=== PATIENT | female | born 1970 | race Caucasian/White ===

== ENCOUNTER 2017-02-18 11:00 | Emergency (ER) | payer MEDICAID, MEDICARE ==
[~2017-02-18] VITALS: Ht 165.1 cm; Wt 72.6 kg
[2017-02-18 11:00] VITALS: BP 127/92
[2017-02-18] MEDS ORDERED: ROBA500T PO (11:36)
[2017-02-18] MEDS ORDERED: INDO25CA PO (11:36)
== END 2017-02-18 12:00 | disposition home or self-care (01) ==
LOC: M ED 11:49
DX: M50.20 Other cervical disc displacement, unspecified cervical region (principal); E78.5 Hyperlipidemia, unspecified

== ENCOUNTER → 2017-03-07 | Outpatient (CLI) | payer MEDICARE, MEDICAID ==
[~2017-03-07] MED LIST: INDO25CA PO; ROBA500T PO
--- NOTE | 2017-03-07 11:51 | REP ---
Clinical: Pain. Technique: Internal rotation, external rotation, and Y view. Findings: Subtle spurring and cortical irregularity at the acromioclavicular joint is appreciated. The glenohumeral joint appears relatively intact. Subacromial space is normal. No periarticular calcifications are identified. No evidence for acute fracture dislocation. Impression: Mild arthritic degenerative changes primarily involving the acromioclavicular joint. Signed by Adrien Bee MD 03/07/2017 11:42 A
--- NOTE | 2017-03-07 12:15 | REP ---
Clinical: Neck pain . Technique: AP, lateral, flexion/extension, bilateral oblique, and open-mouth views. Comparison: 09/19/2016 Findings: Alignment and lordosis is maintained. There is no evidence for acute fracture / compression injury or subluxation. Advanced degenerative disc osteophyte complex appreciated at the C5-6 level includes osteophytosis, endplate sclerosis and disc space narrowing. No further degenerative changes noted. Oblique views demonstrate patent neural foramen. Open mouth view demonstrates normal C1-C2 articulation and odontoid process. Impression: Advanced focal degenerative changes at the C5-6 level. Signed by Adrien Bee MD 03/07/2017 12:07 P
== END ==
LOC: M ADAMS 11:07
PROVIDERS: ATTEND Physician Assistant Medical
DX: M50.90 Cervical disc disorder, unspecified, unspecified cervical region (principal); M25.511 Pain in right shoulder
CPT/HCPCS: 72050; 73030; 90732; G0009

== ENCOUNTER → 2017-03-29 | Outpatient (REF) | payer MEDICARE, MEDICAID ==
[2017-03-29 18:59] LABS: ALBUMIN 3.5 GM/DL (3.2-5.2); ALBUMIN/GLOBULIN RATIO 1.17 (1.00-1.93); ALKALINE PHOSPHATASE 52 U/L (45-117); ALT/SGPT 17 U/L (12-78); ANION GAP 8 MEQ/L (8-16); AST/SGOT 13 U/L (15-37); BILIRUBIN,TOTAL 0.6 MG/DL (0.2-1.0); BLOOD UREA NITROGEN 12 MG/DL (7-18); CARBON DIOXIDE LEVEL 26 MEQ/L (21-32); CHLORIDE LEVEL 106 MEQ/L (98-107); CHOLESTEROL LEVEL 258 MG/DL (<200); FREE T4 1.06 NG/DL (0.76-1.46); GLOMERULAR FILTRATION RATE > 60.0 (>58); GLUCOSE, FASTING 87 MG/DL (70-105); POTASSIUM SERUM 4.8 MEQ/L (3.5-5.1); SODIUM LEVEL 140 MEQ/L (136-145); TOTAL PROTEIN 6.5 GM/DL (6.4-8.2); TRIGLYCERIDES LEVEL 167 MG/DL (<150)
[2017-03-29 19:07] LABS: BASO # 0.1 K/mm3 (0.0-0.2); BASO % 0.8 % (0.0-1.0); EOS # 0.1 K/mm3 (0.0-0.50); EOS % 1.5 % (0.0-3.0); LARGE UNSTAINED CELL # 0.2 K/mm3 (0.0-0.4); LARGE UNSTAINED CELL % 1.7 % (0.0-4.0); LYMPH # 2.4 K/mm3 (1.5-4.5); LYMPH % 24.6 % (24.0-44.0); MEAN CORPUSCULAR HEMOGLOBIN 28.3 pg (27.0-33.0); MEAN CORPUSCULAR HGB CONC 32.3 g/dl (32.0-36.5); MEAN CORPUSCULAR VOLUME 87.8 fl (80.0-96.0); MONO # 0.4 K/mm3 (0.0-0.8); MONO % 4.6 % (0.0-5.0); NEUTROPHILS # 6.4 K/mm3 (1.8-7.7); NEUTROPHILS % 66.9 % (36.0-66.0); PLATELET COUNT, AUTOMATED 271 k/mm3 (150-450); WHITE BLOOD COUNT 9.6 K/mm3 (4.0-10.0)
== END ==
LOC: M SFHCADAM 09:52
PROVIDERS: ATTEND Physician Assistant Medical
DX: Z00.00 Encounter for general adult medical examination without abnormal findings (principal); F17.210 Nicotine dependence, cigarettes, uncomplicated; E66.01 Morbid (severe) obesity due to excess calories; Z12.39 Encounter for other screening for malignant neoplasm of breast; M54.2 Cervicalgia; M25.511 Pain in right shoulder; Z23 Encounter for immunization

== ENCOUNTER → 2017-04-21 | Outpatient (CLI) | payer MEDICAID, MEDICARE ==
--- NOTE | 2017-04-23 08:51 | REP ---
MR CERVICAL SPINE WITHOUT CONTRAST: HISTORY: Right neck and shoulder pain. A disc bulge with associated osteophyte formation is present at the C5-6 level. There is mild effacement of the thecal sac without spinal cord compression. Bilateral uncinate process hypertrophy is present. This produces mild narrowing at the C5 neural foramina. There is no other disc bulge or herniation. The remaining neural foramina are patent. The spinal cord is normal in signal intensity. The C5-6 intervertebral disc is decreased in height consistent with disc degeneration. Increased signal intensity on T2-weighted images is present in the endplates of the C5 and C6 vertebral bodies. This represents degenerative change. IMPRESSION: There is cervical spondylosis at the C5-6 level without spinal cord compression. Signed by Chuy Westfall MD 04/23/2017 09:45 A
--- NOTE | 2017-04-23 12:07 | REP ---
MRI RIGHT SHOULDER WITHOUT CONTRAST: HISTORY: Acute pain in the right shoulder. Right neck pain. Limited range of motion. Comparison radiographs are from March 07, 2017. FINDINGS: There is some marrow edema on either side of a hypertrophied osteoarthritic acromioclavicular joint. Glenohumeral joint is normally aligned. There is diffuse increased signal intensity along the distal supraspinatus tendon. On oblique coronal T2-weighted scans, there is heterogeneous fluid signal intensity in this portion of the tendon consistent with partial thickness but fairly extensive supraspinatus tendon tears. No retraction is seen. Infraspinatus, subscapularis, and biceps tendons are intact. No labral disruption is appreciated. No juxtaarticular cyst or mass is observed. IMPRESSION: 1. Extensive tendinosis and partial-thickness tear supraspinatus tendon. 2. AC joint osteoarthritis with bony hypertrophy and some marrow edema. Signed by Vinicius Tomlinson MD 04/23/2017 05:02 P
== END ==
LOC: M RAD 09:29
PROVIDERS: ATTEND Physician Assistant Medical
DX: M47.892 Other spondylosis, cervical region (principal); M75.81 Other shoulder lesions, right shoulder; M19.011 Primary osteoarthritis, right shoulder; M54.2 Cervicalgia; M25.511 Pain in right shoulder

== ENCOUNTER → 2018-06-30 | Outpatient (REF) | payer MEDICARE | LOC: M SFHCWAGY 12:09 | DX: Z12.4 Encounter for screening for malignant neoplasm of cervix (principal); R87.5 Abnormal microbiological findings in specimens from female genital organs; Z12.12 Encounter for screening for malignant neoplasm of rectum | CPT/HCPCS: G0123 ==

== ENCOUNTER → 2018-07-02 | Outpatient (CLI) | payer MEDICARE | LOC: M WHC 14:29 | DX: R10.2 Pelvic and perineal pain (principal); Z12.31 Encounter for screening mammogram for malignant neoplasm of breast; D25.9 Leiomyoma of uterus, unspecified; N83.02 Follicular cyst of left ovary; N88.8 Other specified noninflammatory disorders of cervix uteri; N63.24 Unspecified lump in the left breast, lower inner quadrant | CPT/HCPCS: 76830 ==

== ENCOUNTER → 2018-07-08 | Outpatient (CLI) | payer MEDICARE | LOC: M RAD 10:52 | DX: N63.10 Unspecified lump in the right breast, unspecified quadrant (principal) | CPT/HCPCS: 77065 ==

== ENCOUNTER → 2018-12-01 | Outpatient (CLI) | payer MEDICARE ==
[~2018-12-01] MED LIST changes: +GABA-843 PO; +GASTROGRAFIN SOLUTION 30ML (Q9963) As Ordered ONE; +ISOVUE-370 76% 100ML VIAL (Q9967) As Ordered ONE; +MELO15TA28
--- NOTE | 2018-12-01 11:40 | REP ---
CT of the abdomen pelvis without and with IV contrast and with bowel contrast: There are no comparisons. The visualized lung estevez are unremarkable. The hepatic parenchyma, gallbladder, pancreas and spleen are unremarkable. There is a 7 mm right adrenal hypodense nodule measuring 8 HU, compatible with a small benign angioma. The right adrenal is otherwise unremarkable. The left adrenal is unremarkable. The kidneys are unremarkable. 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 There is reconstitution of the distal abdominal aorta and the lumbar collaterals. The inferior mesenteric artery, iliac arteries and femoral arteries are patent. The right renal artery is patent and There is a atheromatous plaque at the origin of the left renal artery. The celiac artery and superior mesenteric artery are patent without stenosis. There is no periaortic or mesenteric adenopathy. There is no ascites. The mesentery is unremarkable. There is no bowel distension or obstruction. There is no bowel wall thickening. Pelvis: The appendix and terminal ileum are unremarkable. There is no ascites or adenopathy. The uterus, adnexa are unremarkable except for a bilateral fallopian tubal ligation clips. There is a tiny bubble of air anteriorly in the bladder. This could be from catheterization. 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 The distal abdominal aorta is reconstituted by lumbar collaterals as described. Bilateral tubal ligation clips. No bowel distension or obstruction. No bowel wall thickening. No diverticula. No ascites or adenopathy. Terminal ileum and appendix are unremarkable. 7 mm hypodense right adrenal nodule compatible with benign adenoma. Electronically Signed by Leonardo Madsen MD 12/01/2018 11:31 A
== END ==
LOC: M RAD 08:21
PROVIDERS: ATTEND Surgery
DX: R10.13 Epigastric pain (principal)
CPT/HCPCS: 74178; Q9963; Q9967

== ENCOUNTER → 2018-12-16 | Outpatient (CLI) | payer MEDICARE ==
[~2018-12-16] MED LIST changes: +E-Z-GAS II EFFERVESCENT PACKET (SODIUM BICARB./CITRIC ACID/SIMETHICONE) As Ordered ONE; +E-Z-HD 98% w/w 340GM SUSP BTL As Ordered ONE; +E-Z-PAQUE 96% w/w SUSP 176GM BTL As Ordered ONE; -GASTROGRAFIN SOLUTION 30ML (Q9963) As Ordered ONE; -ISOVUE-370 76% 100ML VIAL (Q9967) As Ordered ONE
--- NOTE | 2018-12-17 08:13 | REP ---
UPPER GI AIR CONTRAST AND SMALL BOWEL FOLLOW THROUGH The procedure was performed under the direct supervision of Dr. Tomlinson. The images were reviewed with Dr. Tomlinson The filter worker film shows no organomegaly or pathological masses. The intestinal gas pattern is non-specific. Liquid barium and gas producing crystals were given in the erect position as well as liquid barium in the prone oblique position in order to perform a double contrast upper GI examination. Additionally liquid barium was given at the end of the examination in order to perform a small bowel follow through. The oral and pharyngeal stages of deglutition are unremarkable. Esophageal transport is prompt and efficient and there is no esophagitis, stricture, mucosal ring or hiatal hernia. Gastroesophageal reflux is not demonstrated on this examination. The stomach majano are normally outlined . The rugal folds are smooth and regular. There is no gastritis neoplasm or ulcer disease. In the post bulbar duodenum there are thickened folds which likely represents duodenitis. There is no ralph ulcer identified. The visualized portion of the proximal small bowel appears normal in course and caliber. The barium column was followed through the small bowel to the level of the terminal ileum. Small bowel transit time is approximately 15 minutes . During fluoroscopy gentle palpation shows all loops are freely movable and pliable. There are no fixed or angulated loops. The small bowel mucosal pattern is normal in course and caliber. There is no transition to suggest a partial small-bowel obstruction. Spot filming of the terminal ileum shows it to be unremarkable. Impression: There are thickened folds in the post bulbar duodenum. This likely represents duodenitis. There is no ralph ulcer identified. The remainder of the exam is unremarkable. 2.2 minutes of fluoro time was utilized for this procedure. Reviewed by REJI Maradiaga 12/16/2018 04:13 P Electronically Signed by Vinicius Tomlinson MD 12/17/2018 08:04 A
== END ==
LOC: M RAD 10:56
PROVIDERS: ATTEND Surgery
DX: R10.9 Unspecified abdominal pain (principal)

== ENCOUNTER → 2018-12-30 | Outpatient (REF) | payer MEDICARE ==
[~2018-12-30] MED LIST changes: +ATOR80TA59 PO; +CLOP75TA2 PO; -E-Z-GAS II EFFERVESCENT PACKET (SODIUM BICARB./CITRIC ACID/SIMETHICONE) As Ordered ONE; -E-Z-HD 98% w/w 340GM SUSP BTL As Ordered ONE; -E-Z-PAQUE 96% w/w SUSP 176GM BTL As Ordered ONE; +VITA50005 PO; +[UNRECOGNIZED DRUG - CODE] EX
[2018-12-30 13:13] LABS: ALT/SGPT 23 U/L (12-78); BILIRUBIN,TOTAL 0.5 MG/DL (0.2-1.0); BLOOD UREA NITROGEN 10 MG/DL (7-18); CALCIUM LEVEL 9.6 MG/DL (8.5-10.1); CARBON DIOXIDE LEVEL 29 MEQ/L (21-32); CHLORIDE LEVEL 105 MEQ/L (98-107); CHOLESTEROL LEVEL 320 MG/DL (<200); CHOLESTEROL RISK RATIO 5.925 (<5); CREATININE FOR GFR 0.71 MG/DL (0.55-1.30); GLOMERULAR FILTRATION RATE > 60.0 (>58); GLUCOSE, FASTING 94 MG/DL (70-100); HDL CHOLESTEROL 54 MG/DL (>40); LDL CHOLESTEROL 226 MG/DL (<100); NON-HDL-C 266 MG/DL; POTASSIUM SERUM 4.9 MEQ/L (3.5-5.1); SODIUM LEVEL 142 MEQ/L (136-145); TOTAL 25(OH) VITAMIN D 13.1 NG/ML (30.0-100.0); TOTAL PROTEIN 7.4 GM/DL (6.4-8.2); TRIGLYCERIDES LEVEL 199 MG/DL (<150)
[2018-12-30 13:48] LABS: HEMOGLOBIN A1c 5.5 %
== END ==
LOC: M SFHCADAM 08:09
PROVIDERS: ATTEND Physician Assistant Medical
DX: F17.210 Nicotine dependence, cigarettes, uncomplicated (principal); E66.01 Morbid (severe) obesity due to excess calories; E55.9 Vitamin D deficiency, unspecified; I71.4 Abdominal aortic aneurysm, without rupture; E78.2 Mixed hyperlipidemia

== ENCOUNTER 2019-01-15 06:13 | Inpatient (IN) | payer MEDICARE ==
[~2019-01-15] VITALS: Ht 167.6 cm; Wt 84.0 kg
[2019-01-15] VITALS (9 sets, daily range): BP systolic 83–126; BP diastolic 52–68
[~2019-01-15 06:13] MED LIST changes: +LIDOCAINE 1% MDV 20ML VIAL SQ PRN; +LR 1,000 ML IV ONE
[2019-01-15 06:37] LABS: HEMATOCRIT 46.1 % (36.0-47.0); HEMOGLOBIN 14.9 g/dl (12.0-15.5); MEAN CORPUSCULAR HEMOGLOBIN 28.1 pg (27.0-33.0); MEAN CORPUSCULAR HGB CONC 32.3 g/dl (32.0-36.5); MEAN CORPUSCULAR VOLUME 86.8 fl (80.0-96.0); PLATELET COUNT, AUTOMATED 310 10^3/uL (150-450); RED BLOOD COUNT 5.31 10^6/uL (4.00-5.40)
[2019-01-15] MEDS ORDERED: HEPARIN SOD (PORCINE) 5000 UNITS/ML VIAL As Ordered ONE ×4 (06:51→10:48)
[2019-01-15] MEDS ORDERED: PHENYLEPHRINE INJ 10MG/ML VIAL (J2370) As Ordered ONE (07:10)
[2019-01-15] MEDS ORDERED: LIDOCAINE 2% INJ 100 MG/5 ML SDV (FOR ANES.) As Ordered ONE (07:16)
[2019-01-15] MEDS ORDERED: ONDANSETRON 4MG/2ML VIAL (J2405) As Ordered ONE (07:16)
[2019-01-15] MEDS ORDERED: PROPOFOL 200 MG/20 ML VIAL As Ordered ONE (07:16)
[2019-01-15] MEDS ORDERED: ROCURONIUM BROMIDE 50 MG/5 ML VIAL As Ordered ONE ×2 (07:16→08:44)
[2019-01-15] MEDS ORDERED: dexameTHASONE 4 MG/ML 1ML VIAL (J1100) As Ordered ONE (07:16)
[2019-01-15] MEDS ORDERED: fentaNYL 250 MCG/5 ML INJECTION (J3010) As Ordered ONE ×2 (07:20→08:28)
[2019-01-15] MEDS ORDERED: MIDAZOLAM INJ 2 MG/2 ML VIAL (J2250) As Ordered ONE (07:20)
--- NOTE | 2019-01-15 07:34 | HPEPDOC ---
General Date of Admission Jan 15, 2019 at 06:13 Attending Physician: Benigno Samaniego MD Chief Complaint The patient is a 48-year-old female admitted with a reason for visit of Aortic Occlusion. Source: Patient Exam Limitations: No limitations Timing/Duration: Constant, Getting worse Severity: Severe History of Present Illness Patient is a 48-year-old female with bilateral lower extremity leg pain numbness tingling who was found to have aortic occlusion on a CT scan of the abdomen and pelvis.Patient denies rest pain, TIAs, amaurosis fugax, paralysis or paresis of the extremity, nausea, fevers, chills, vomiting, chest pain, or shortness of breath. Home Medications Scheduled (Sodium Sulfacetamide/Sulf 10-5 %) 1 Emu Emu, Unknown Dose EX DAILY, (Reported) left lower leg Atorvastatin Calcium (Atorvastatin Calcium) 80 Mg Tab, 80 MG PO QHS, (Reported) Clopidogrel Bisulfate (Clopidogrel) 75 Mg Tab, 75 MG PO DAILY, (Reported) Ergocalciferol (Vitamin D) 50,000 Unit Cap, 50,000 UNIT PO QWEEK, (Reported) friday Gabapentin (Gabapentin) 300 Mg Cap, 300 MG PO TID, (Reported) Allergies Coded Allergies: No Known Allergies (Unverified , 01/13/19) Past Medical History Medical History Tobacco use Hyperlipidemia Alcohol abuse Cervical degenerative disc disease Heart degenerative disc disease History of cocaine use Lumbar disc 5 fracture Vitamin D deficiency Surgical History Tubal ligation Oral surgery Family History Mother is with a history of cancer which was metastatic and of unknown etiology. Hypertension Father has unknown history and is unknown to the patient Paternal grandmother had a history of diabetes hypertension and coronary artery disease. Social History * Smoker: current smoker Alcohol: Denies Drugs: denies Recent Travel/Sick Contacts: Denies: Recent travel, Recent sick contacts Psychosocial History: No pertinent psych hx Review of Systems Constitutional: Denies: Chills, Fever, Malaise, Night Sweats, Weakness, Fatig ue, Weight Loss, Lethargy Eyes: Denies: Pain, Vision change, Conjunctivae inflammation, Eyelid inflammation, Redness ENT: Denies: Head Aches, Ear Pain, Dysphagia, Sinus Congestion, Post Nasal Drip, Sore Throat, Epistaxis Skin: Denies: Rash, Lesions, Jaundice, Bruising, Itching, Dry, Breakdown, Nail Changes Pulmonary: Reports: Other Symptoms; Denies: Dyspnea, Cough, Pleuritic Chest Pain Cardiovascular: Denies: Chest Pain, Palpitations, Orthopnea, Paroxysmal Noc. Dyspnea, Edema, Lt Headedness Gastrointestinal: Denies: Nausea, Vomiting, Abdominal Pain, Diarrhea, Constipation, Melena, Hematochezia Genitourinary: Denies: Dysuria, Frequency, Incontinence, Hematuria, Retention Hematologic: Denies: Bruising, Bleeding Excessively, Petecchia, Purpura, Enlarged Lymph Nodes Endocrine: Denies: Polydipsia, Polyphagia, Polyuria, Heat Intolerance, Cold Intolerance Musculoskeletal: Denies: Neck Pain, Back Pain, Shoulder Pain, Arm Pain, Hand Pain, Leg Pain, Foot Pain, Joint Pain, Muscle Pain, Spasms Neurological: Denies: Weakness, Numbness, Incoordination, Change in speech, Confusion, Seizures Psych: Reports: Mood Normal; Denies: Anxiety, Depression, Memory Issues, Thoughts of Self Harm, Anger, Thoughts of Harming Other Physical Examination General Exam: Positive: Alert, Cooperative, No Acute Distress Eye Exam: Positive: PERRLA, Conjunctiva & lids normal ENT Exam: Positive: Atraumatic, Pharynx Normal, Tongue Midline, Nares Patent, Ext Auditory Canal Nml, Pinna Normal Neck Exam: Positive: Supple, +2 carotid pulse wo bruit Chest Exam: Positive: Clear to auscultation, Normal air movement Heart Exam: Positive: Rate Normal Telemetry: Positive: No significant arrhythmia Abdomen Exam: Positive: Normal bowel sounds, Soft Extremity Exam: Negative: Clubbing, Cyanosis, Edema, Normal pulses Skin Exam: Positive: Nl turgor and temperature Neuro Exam: Positive: Normal Gait, Normal Speech, Strength at 5/5 X4 ext, Normal Tone, Sensation Intact, Cranial Nerves 3-12 NL Psych Exam: Positive: Mental status NL, Mood NL, Anxiety, Memory Intact, Oriented x 3 Vital Signs Vital Signs Date Time Temp Pulse Resp B/P (MAP) Pulse Ox O2 Delivery O2 Flow Rate FiO2 01/15/19 06:36 97.1 89 20 102/72 (82) 97 Laboratory Data Labs 24H Laboratory Tests 2 01/15/19 06:25: Nucleated Red Blood Cells % (auto) 0.0 CBC/BMP Laboratory Tests 01/15/19 06:25 Red Blood Count 5.31, Mean Corpuscular Volume 86.8, Mean Corpuscular Hemoglobin 28.1, Mean Corpuscular Hemoglobin Concent 32.3, Red Cell Distribution Width 14.4 Assessment/Plan Assessment 48-year-old female with aortic occlusion and debilitating bilateral lower extremity claudication. Plan Patient will undergo an aortic endarterectomy with possible aortobiiliac or aortobifemoral bypass grafting. Benigno Samaniego MD Jan 15, 2019 07:33
[2019-01-15] MEDS ORDERED: THROMBIN SOLN 20,000 UNITS KIT As Ordered ONE (07:54)
[2019-01-15 08:43] LABS: AMPHETAMINES LEVEL URINE NEGATIVE (NEGATIVE); BARBITURATES URINE NEGATIVE (NEGATIVE); BENZODIAZEPINES URINE NEGATIVE (NEGATIVE); CANNABINOIDS URINE POSITIVE (NEGATIVE); COCAINE METABOLITE URINE NEGATIVE (NEGATIVE); METHADONE URINE NEGATIVE (NEGATIVE); OPIATES URINE NEGATIVE (NEGATIVE); PHENCYCLIDINE URINE NEGATIVE (NEGATIVE)
[2019-01-15] MEDS ORDERED: METOPROLOL 5 MG/5 ML VIAL As Ordered ONE (08:48)
[2019-01-15] MEDS ORDERED: PHENYLephrine HCL 500 MCG/5 ML (100MCG/ML) SYRINGE (J2370) As Ordered ONE (10:14)
[2019-01-15] MEDS ORDERED: ePHEDrine SULFATE 25 MG/5 ML(5MG/ML) SYRINGE As Ordered ONE (10:15)
[2019-01-15] MEDS ORDERED: PROTAMINE SULF INJ 50 MG/5 ML VIAL (J2720) As Ordered ONE (10:48)
[2019-01-15] MEDS ORDERED: SUGAMMADEX SODIUM 500 MG/5 ML VIAL (BRIDION) As Ordered ONE (11:20)
[2019-01-15] MEDS ORDERED: HYDROmorphone HCL 2 MG/ML 1ML VIAL (J1170) As Ordered ONE (11:22)
[2019-01-15] MEDS ORDERED: KETOROLAC 60 MG/2 ML VIAL (J1885) As Ordered ONE (11:23)
[2019-01-15] MEDS ORDERED: MORPHINE 4 MG/ML 1ML VIAL/SYRINGE (J2270) IV PRN ×2 (12:00)
[2019-01-15] MEDS ORDERED: METOCLOPRAMIDE INJ 10MG/2ML VIAL (J2765) IV PRN (12:00)
[2019-01-15] MEDS ORDERED: LR 1,000 ML IV SCH (12:00)
[2019-01-15] MEDS ORDERED: MOM 30ML SUSPENSION UDC PO PRN (12:00)
[2019-01-15] MEDS ORDERED: BISACODYL 10 MG SUPP PR PRN (12:00)
[2019-01-15] MEDS ORDERED: MEPERIDINE INJ 25 MG/ML VIAL (J2175) IV PRN (12:00)
[2019-01-15] MEDS ORDERED: PERCOCET 5MG/325MG TAB PO PRN (12:00)
[2019-01-15] MEDS ORDERED: ONDANSETRON 4MG/2ML VIAL (J2405) IV PRN (12:00)
[2019-01-15] MEDS ORDERED: LEVALBUTEROL 1.25 MG/0.5 ML CONCENTRATE NEB As Ordered ONE (12:25)
[2019-01-15] MEDS: PHENYLephrine HCL 500 MCG/5 ML (100MCG/ML) SYRINGE (J2370) IV SCH ×5 (12:26→13:05)
[2019-01-15] MEDS ORDERED: LEVALBUTEROL 1.25 MG/0.5 ML CONCENTRATE NEB INH ONE (12:45)
[2019-01-15] MEDS: fentaNYL 100 MCG/2 ML INJECTION (J3010) IV PRN ×3 (12:50→13:20)
[2019-01-15 13:49] LABS: HEMOGLOBIN 14.3 g/dl (12.0-15.5)
[2019-01-15] MEDS ORDERED: HEPARIN SOD (PORCINE) 5000 UNITS/ML VIAL SC SCH (14:00)
[2019-01-15] MEDS: ONDANSETRON 4MG/2ML VIAL (J2405) IV PRN ×2 (14:20→20:14)
[2019-01-15] MEDS: D5W/LR 1,000 ML IV SCH ×2 (14:28→21:04)
[2019-01-15] MEDS ORDERED: INFLUENZA QUADRIVALENT PF VACCINE 0.5ML SYRINGE (90686) IM PRN (16:45)
[2019-01-15] MEDS: ceFAZolin SOD 1 GM in D5W MINI-BAG PLUS 50 ML IV SCH (16:55)
[2019-01-15] MEDS: NORCO, ANEXSIA 5/325MG TABLET (HYDROcodone/ACETAMINOPHEN) PO PRN (20:14)
[2019-01-15 20:45] LABS: HEMATOCRIT 39.6 % (36.0-47.0); HEMOGLOBIN 12.4 g/dl (12.0-15.5)
[2019-01-15] MEDS: SENOKOT S TAB PO SCH (21:04)
[2019-01-15] MEDS: PANTOPRAZOLE 40MG INJ (PROTONIX) (C9113) IV SCH (21:04)
[2019-01-15] MEDS: HEPARIN SOD (PORCINE) 5000 UNITS/ML VIAL SC SCH (21:05)
[2019-01-15] MEDS: DOCUSATE SODIUM 100 MG CAP PO SCH (21:05)
[2019-01-15] MEDS ORDERED: NS 500 ML IV ONE (22:15)
[2019-01-16] VITALS (24 sets, daily range): BP systolic 85–152; BP diastolic 44–75
[2019-01-16] MEDS: NORCO, ANEXSIA 5/325MG TABLET (HYDROcodone/ACETAMINOPHEN) PO PRN ×6 (00:06→22:19)
[2019-01-16] MEDS: ceFAZolin SOD 1 GM in D5W MINI-BAG PLUS 50 ML IV SCH (00:07)
[2019-01-16 01:58] LABS: HEMATOCRIT 33.1 % (36.0-47.0); HEMOGLOBIN 10.6 g/dl (12.0-15.5)
[2019-01-16] MEDS: NS 1,000 ML IV SCH ×2 (02:34→05:42)
[2019-01-16] MEDS: HEPARIN SOD (PORCINE) 5000 UNITS/ML VIAL SC SCH ×3 (05:31→21:07)
[2019-01-16] MEDS: D5W/LR 1,000 ML IV SCH ×3 (05:32→21:07)
[2019-01-16 08:15] LABS: HEMATOCRIT 24.9 % (36.0-47.0); HEMOGLOBIN 7.8 g/dl (12.0-15.5); MEAN CORPUSCULAR HEMOGLOBIN 27.7 pg (27.0-33.0); MEAN CORPUSCULAR HGB CONC 31.3 g/dl (32.0-36.5); MEAN CORPUSCULAR VOLUME 88.3 fl (80.0-96.0); PLATELET COUNT, AUTOMATED 219 10^3/uL (150-450); RED BLOOD COUNT 2.82 10^6/uL (4.00-5.40); WHITE BLOOD COUNT 10.5 10^3/uL (4.0-10.0)
[2019-01-16] MEDS: DOCUSATE SODIUM 100 MG CAP PO SCH ×2 (08:18→21:06)
[2019-01-16] MEDS: PANTOPRAZOLE 40MG INJ (PROTONIX) (C9113) IV SCH ×2 (08:19→21:07)
[2019-01-16] MEDS: SENOKOT S TAB PO SCH ×2 (08:19→21:06)
[2019-01-16 09:24] LABS: BLOOD UREA NITROGEN 16 MG/DL (7-18); CALCIUM LEVEL 5.4 MG/DL (8.5-10.1); CARBON DIOXIDE LEVEL 18 MEQ/L (21-32); CHLORIDE LEVEL 117 MEQ/L (98-107); CREATININE FOR GFR 0.74 MG/DL (0.55-1.30); GLOMERULAR FILTRATION RATE > 60.0 (>58); GLUCOSE, FASTING 119 MG/DL (70-100); POTASSIUM SERUM 3.7 MEQ/L (3.5-5.1); SODIUM LEVEL 144 MEQ/L (136-145)
[2019-01-16 14:26] LABS: HEMATOCRIT 24.9 % (36.0-47.0); HEMOGLOBIN 7.9 g/dl (12.0-15.5)
[2019-01-16] MEDS: ACETAMINOPHEN TAB 650MG DOSE (2X325MG) PO PRN (15:41)
[2019-01-16 19:35] LABS: HEMATOCRIT 25.1 % (36.0-47.0); HEMOGLOBIN 7.7 g/dl (12.0-15.5)
[2019-01-16] MEDS: GABAPENTIN 300 MG CAP PO SCH (23:49)
[2019-01-17] VITALS (21 sets, daily range): BP systolic 109–138; BP diastolic 53–70
[2019-01-17 02:14] LABS: HEMATOCRIT 24.8 % (36.0-47.0); HEMOGLOBIN 7.7 g/dl (12.0-15.5)
[2019-01-17] MEDS: NORCO, ANEXSIA 5/325MG TABLET (HYDROcodone/ACETAMINOPHEN) PO PRN ×5 (02:22→22:58)
[2019-01-17] MEDS: HEPARIN SOD (PORCINE) 5000 UNITS/ML VIAL SC SCH ×3 (05:17→21:27)
[2019-01-17] MEDS: D5W/LR 1,000 ML IV SCH (05:18)
[2019-01-17 07:51] LABS: HEMATOCRIT 22.6 % (36.0-47.0); MEAN CORPUSCULAR HEMOGLOBIN 27.5 pg (27.0-33.0); MEAN CORPUSCULAR VOLUME 88.6 fl (80.0-96.0); PLATELET COUNT, AUTOMATED 215 10^3/uL (150-450); RED BLOOD COUNT 2.55 10^6/uL (4.00-5.40); WHITE BLOOD COUNT 9.6 10^3/uL (4.0-10.0)
[2019-01-17 07:56] LABS: HEMATOCRIT 22.5 % (36.0-47.0)
[2019-01-17] MEDS: GABAPENTIN 300 MG CAP PO SCH ×3 (08:01→21:27)
[2019-01-17] MEDS: SENOKOT S TAB PO SCH ×2 (08:01→21:27)
[2019-01-17] MEDS: DOCUSATE SODIUM 100 MG CAP PO SCH ×2 (08:01→21:27)
[2019-01-17] MEDS: PANTOPRAZOLE 40MG INJ (PROTONIX) (C9113) IV SCH (08:01)
[2019-01-17 08:12] LABS: BLOOD UREA NITROGEN 8 MG/DL (7-18); CALCIUM LEVEL 7.3 MG/DL (8.5-10.1); CARBON DIOXIDE LEVEL 27 MEQ/L (21-32); CHLORIDE LEVEL 109 MEQ/L (98-107); CREATININE FOR GFR 0.75 MG/DL (0.55-1.30); GLOMERULAR FILTRATION RATE > 60.0 (>58); GLUCOSE, FASTING 118 MG/DL (70-100); POTASSIUM SERUM 3.9 MEQ/L (3.5-5.1); SODIUM LEVEL 141 MEQ/L (136-145)
[2019-01-17] MEDS: ACETAMINOPHEN TAB 650MG DOSE (2X325MG) PO PRN ×2 (10:25→16:24)
--- NOTE | 2019-01-17 12:45 | IPNPDOC ---
Subjective General Date/Time Seen The patient was seen on 01/17/19 at 12:33. Subject Chief Complaint/History The patient is a 48-year-old female admitted with a reason for visit of Aortic Occlusion. Current Medications Current Medications Current Medications Acetaminophen (Tylenol Tab) 650 mg Q4HP PRN PO MILD PAIN or TEMP > 101 Last administered on 01/17/19at 10:25; Start 01/15/19 at 12:00 Acetaminophen/ Hydrocodone Bitart ([place], Anexsia 5/325) 1 tab Q4HP PRN PO MODERATE PAIN (PS 5-7) Last administered on 01/17/19at 12:23; Start 01/15/19 at 12:00 Bisacodyl (Dulcolax Suppository) 10 mg DAILYPRN PRN [place] CONSTIPATION; Start 01/15/19 at 12:00 Cefazolin Sodium 1 gm/Dextrose 50 ml @ 100 mls/hr Q8H IV Last administered on 01/16/19at 00:07; Start 01/15/19 at 16:00; Stop 01/16/19 at 00:29; Status DC Dextrose/Lactated Ringer's 1,000 ml @ 125 mls/hr Q8H IV Last administered on 01/17/19at 05:18; Start 01/15/19 at 11:55; Stop 01/17/19 at 08:23; Status DC Docusate Sodium (Colace) 100 mg BID PO Last administered on 01/17/19at 08:01; Start 01/15/19 at 21:00 Fentanyl Citrate (Sublimaze) 25 mcg Q5MP PRN IV MODERATE PAIN (PS 4-7) Last administered on 01/15/19at 13:20; Start 01/15/19 at 12:00; Stop 01/15/19 at 13:00; Status DC Gabapentin (Neurontin) 300 mg TID PO Last administered on 01/17/19at 08:01; Start 01/16/19 at 21:00 Heparin Sodium (Porcine) (Heparin) 5,000 units Q8H SC ; Start 01/15/19 at 14:00; Status Cancel Heparin Sodium (Porcine) (Heparin) 5,000 units Q8H SC Last administered on 01/17/19at 05:17; Start 01/15/19 at 22:00 Influenza Virus Vaccine (Fluzone Quadrivalent Pf Vaccine) 0.5 ml ONCE PRN IM WHEN DCd FROM ICU; Start 01/15/19 at 16:45 Lactated Ringer's 1,000 ml @ 100 mls/hr Q10H IV ; Start 01/15/19 at 12:00; Stop 01/15/19 at 13:00; Status DC Lidocaine HCl (LIDOCAINE 1% MDV 20ml) 0.1 ml ONCE PRN SQ DISCOMFORT BEFORE IV START; Start 01/15/19 at 06:00; Stop 01/15/19 at 11:56; Status DC Magnesium Hydroxide (Milk Of Magnesia) 30 ml DAILYPRN PRN PO CONSTIPATION; Start 01/15/19 at 12:00 Meperidine HCl (Demerol) 12.5 mg Q5MP PRN IV SHIVERING; Start 01/15/19 at 12:00; Stop 01/15/19 at 13:00; Status DC Metoclopramide HCl (REGLAN INJection) 10 mg Q6HP PRN IV NAUSEA OR VOMITING; Start 01/15/19 at 12:00; Stop 01/15/19 at 13:00; Status DC Morphine Sulfate (Morphine Sulfate Inj) 2 mg Q2HP PRN IV SEVERE PAIN (PS 8-10); Start 01/15/19 at 12:00 Morphine Sulfate (Morphine Sulfate Inj) 4 mg Q2HP PRN IV SEVERE PAIN (PS 8-10) Last administered on 01/15/19at 15:56; Start 01/15/19 at 12:00 Ondansetron HCl (ZOFRAN INJection) 4 mg Q4HP PRN IV NAUSEA OR VOMITING; Start 01/15/19 at 12:00; Stop 01/15/19 at 13:00; Status DC Ondansetron HCl (ZOFRAN INJection) 4 mg Q6HP PRN IV NAUSEA OR VOMITING Last administered on 01/15/19at 20:14; Start 01/15/19 at 12:00 Oxycodone/ Acetaminophen (Percocet 5mg/ 325mg Tablet) 1 tab ASDIRECTED PRN PO MILD/MODERATE PAIN (PS 1-7); Start 01/15/19 at 12:00; Stop 01/15/19 at 13:00; Status DC Pantoprazole Sodium (Protonix) 40 mg BID IV Last administered on 01/17/19at 08:01; Start 01/15/19 at 21:00 Phenylephrine HCl (Phenylephrine Syringe (100mcg/ ml)) 100 mcg Q5M IV Last administered on 01/15/19at 12:47; Start 01/15/19 at 12:45; Stop 01/15/19 at 13:06; Status DC Senna/Docusate Sodium (Senokot S) 1 tab BID PO Last administered on 01/17/19at 08:01; Start 01/15/19 at 21:00 Sodium Chloride 1,000 ml @ 250 mls/hr Q4H IV Last administered on 01/16/19at 02:34; Start 01/16/19 at 02:30; Stop 01/16/19 at 06:30; Status DC Allergies Coded Allergies: No Known Allergies (Unverified , 01/13/19) VITAL SIGNS VITAL SIGNS Vital Signs Date Time Temp Pulse Resp B/P (MAP) Pulse Ox O2 Delivery O2 Flow Rate FiO2 01/17/19 12:23 102 21 93 01/17/19 12:00 98.4 101 21 125/61 (87) 96 01/17/19 11:00 106 132/64 (91) 95 01/17/19 10:00 103 118/63 (84) 96 01/17/19 09:00 109 125/58 (83) 99 01/17/19 08:33 101 17 96 01/17/19 08:03 98.5 116 20 131/61 97 01/17/19 08:00 97.8 110 19 131/61 (88) 97 01/17/19 07:00 112 123/58 (83) 96 01/17/19 05:00 100 120/57 (82) 96 01/17/19 04:00 97.4 101 18 109/55 (76) 95 01/17/19 03:00 101 114/59 (83) 96 01/17/19 02:22 18 01/17/19 02:00 116 124/60 (87) 98 01/17/19 01:00 111 113/56 (80) 97 01/17/19 00:00 98.0 109 22 109/53 (76) 96 01/17/19 00:00 109 109/53 (76) 96 01/16/19 23:00 114 100/47 (68) 96 01/16/19 22:19 18 01/16/19 22:00 106 116/58 (83) 96 01/16/19 21:00 105 105/51 (74) 97 01/16/19 20:00 97.6 106 20 104/51 (74) 98 01/16/19 19:00 104 105/52 (75) 95 01/16/19 18:28 104 15 101/53 97 01/16/19 18:00 101 101/53 (74) 96 134/52 01/16/19 17:00 104 112/55 (79) 96 149/60 01/16/19 16:00 98.1 109 17 114/53 (77) 95 93/57 01/16/19 15:00 108 109/53 (77) 95 85/71 01/16/19 14:00 97 109/53 (77) 95 109/44 01/16/19 13:30 111/75 01/16/19 13:00 109 111/75 (86) 96 123/54 01/16/19 13:00 100 15 122/60 96 Intake & Output 01/17/19 06:00 Intake Total 3780 ml Output Total 1550 ml Balance 2230 ml Laboratory Tests 01/16/19 14:12: Hemoglobin 7.9L, Hematocrit 24.9L 01/16/19 19:30: Hemoglobin 7.7L, Hematocrit 25.1L 01/17/19 01:59: Hemoglobin 7.7L, Hematocrit 24.8L 01/17/19 07:30: Hemoglobin 7.0L, Hematocrit 22.6L, White Blood Count 9.6, Red Blood Count 2.55L, Mean Corpuscular Volume 88.6, Mean Corpuscular Hemoglobin 27.5, Mean Corpuscular Hemoglobin Concent 31.0L, Red Cell Distribution Width 14.6H, Platelet Count 215, Nucleated Red Blood Cells % (auto) 0.0, Blood Urea Nitrogen 8, Creatinine 0.75, Sodium Level 141, Potassium Level 3.9, Chloride Level 109H, Carbon Dioxide Level 27, Calcium Level 7.3#L, Anion Gap 5L, Glomerular Filtration Rate > 60.0, Fasting Glucose 118H Current Medications Medications (Trade) Dose Ordered Sig/Colin Route PRN Reason Start Time Stop Time Status Last Admin Dose Admin Acetaminophen (Tylenol Tab) 650 mg Q4HP PRN PO MILD PAIN or TEMP > 101 01/15/19 12:00 01/17/19 10:25 Acetaminophen/ Hydrocodone Bitart ([place], Anexsia 5/325) 1 tab Q4HP PRN PO MODERATE PAIN (PS 5-7) 01/15/19 12:00 01/17/19 12:23 Docusate Sodium (Colace) 100 mg BID PO 01/15/19 21:00 01/17/19 08:01 Gabapentin (Neurontin) 300 mg TID PO 01/16/19 21:00 01/17/19 08:01 Heparin Sodium (Porcine) (Heparin) 5,000 units Q8H SC 01/15/19 22:00 01/17/19 05:17 Morphine Sulfate (Morphine Sulfate Inj) 4 mg Q2HP PRN IV SEVERE PAIN (PS 8-10) 01/15/19 12:00 01/15/19 15:56 Ondansetron HCl (ZOFRAN INJection) 4 mg Q6HP PRN IV NAUSEA OR VOMITING 01/15/19 12:00 01/15/19 20:14 Pantoprazole Sodium (Protonix) 40 mg BID IV 01/15/19 21:00 01/17/19 08:01 Senna/Docusate Sodium (Senokot S) 1 tab BID PO 01/15/19 21:00 01/17/19 08:01 Laboratory Tests 01/15/19 13:30 01/15/19 20:19 01/16/19 01:50 01/16/19 08:00 Red Blood Count 2.82 L, Mean Corpuscular Volume 88.3, Mean Corpuscular Hemoglobin 27.7, Mean Corpuscular Hemoglobin Concent 31.3 L, Red Cell Distribution Width 14.6 H, Calcium Level 5.4 *L 01/16/19 14:12 01/16/19 19:30 01/17/19 01:59 01/17/19 07:30 Red Blood Count 2.55 L, Mean Corpuscular Volume 88.6, Mean Corpuscular Hemoglobin 27.5, Mean Corpuscular Hemoglobin Concent 31.0 L, Red Cell Distribution Width 14.6 H, Calcium Level 7.3 #L Objective Physical Examination General Exam: Positive: Alert, Cooperative, No Acute Distress Eye Exam: Positive: PERRLA, Conjunctiva & lids normal ENT Exam: Positive: Atraumatic, Pharynx Normal, Tongue Midline, Nares Patent, Ext Auditory Canal Nml, Pinna Normal Neck Exam: Positive: Supple, +2 carotid pulse wo bruit Chest Exam: Positive: Clear to auscultation, Normal air movement Heart Exam: Positive: Rate Normal Telemetry: Positive: No significant arrhythmia Abdomen Exam: Positive: Normal bowel sounds, Soft Extremity Exam: Negative: Clubbing, Cyanosis, Edema, Normal pulses Skin Exam: Positive: Nl turgor and temperature Neuro Exam: Positive: Normal Gait, Normal Speech, Strength at 5/5 X4 ext, Loni l Tone, Sensation Intact, Cranial Nerves 3-12 NL Psych Exam: Positive: Mental status NL, Mood NL, Anxiety, Memory Intact, Oriented x 3 Assessment/Plan Assessment Aortic endarterectomy Plan Transfuse 2 units PRBC OOB D/C haynes advance diet Benigno Samaniego MD Jan 17, 2019 12:45
--- NOTE | 2019-01-17 12:50 | IPNPDOC ---
Subjective General Date/Time Seen The patient was seen on 01/16/19 at 6:30 am. Subject Chief Complaint/History The patient is a 48-year-old female admitted with a reason for visit of Aortic Occlusion. Current Medications Current Medications Current Medications Acetaminophen (Tylenol Tab) 650 mg Q4HP PRN PO MILD PAIN or TEMP > 101 Last administered on 01/17/19at 10:25; Start 01/15/19 at 12:00 Acetaminophen/ Hydrocodone Bitart ([place], Anexsia 5/325) 1 tab Q4HP PRN PO MODERATE PAIN (PS 5-7) Last administered on 01/17/19at 12:23; Start 01/15/19 at 12:00 Bisacodyl (Dulcolax Suppository) 10 mg DAILYPRN PRN DC CONSTIPATION; Start 01/15/19 at 12:00 Cefazolin Sodium 1 gm/Dextrose 50 ml @ 100 mls/hr Q8H IV Last administered on 01/16/19at 00:07; Start 01/15/19 at 16:00; Stop 01/16/19 at 00:29; Status DC Dextrose/Lactated Ringer's 1,000 ml @ 125 mls/hr Q8H IV Last administered on 01/17/19at 05:18; Start 01/15/19 at 11:55; Stop 01/17/19 at 08:23; Status DC Docusate Sodium (Colace) 100 mg BID PO Last administered on 01/17/19at 08:01; Start 01/15/19 at 21:00 Fentanyl Citrate (Sublimaze) 25 mcg Q5MP PRN IV MODERATE PAIN (PS 4-7) Last administered on 01/15/19at 13:20; Start 01/15/19 at 12:00; Stop 01/15/19 at 13:00; Status DC Gabapentin (Neurontin) 300 mg TID PO Last administered on 01/17/19at 08:01; Start 01/16/19 at 21:00 Heparin Sodium (Porcine) (Heparin) 5,000 units Q8H SC ; Start 01/15/19 at 14:00; Status Cancel Heparin Sodium (Porcine) (Heparin) 5,000 units Q8H SC Last administered on 01/17/19at 05:17; Start 01/15/19 at 22:00 Influenza Virus Vaccine (Fluzone Quadrivalent Pf Vaccine) 0.5 ml ONCE PRN IM WHEN DCd FROM ICU; Start 01/15/19 at 16:45 Lactated Ringer's 1,000 ml @ 100 mls/hr Q10H IV ; Start 01/15/19 at 12:00; Stop 01/15/19 at 13:00; Status DC Lidocaine HCl (LIDOCAINE 1% MDV 20ml) 0.1 ml ONCE PRN SQ DISCOMFORT BEFORE IV START; Start 01/15/19 at 06:00; Stop 01/15/19 at 11:56; Status DC Magnesium Hydroxide (Milk Of Magnesia) 30 ml DAILYPRN PRN PO CONSTIPATION; Start 01/15/19 at 12:00 Meperidine HCl (Demerol) 12.5 mg Q5MP PRN IV SHIVERING; Start 01/15/19 at 12:00; Stop 01/15/19 at 13:00; Status DC Metoclopramide HCl (REGLAN INJection) 10 mg Q6HP PRN IV NAUSEA OR VOMITING; Start 01/15/19 at 12:00; Stop 01/15/19 at 13:00; Status DC Morphine Sulfate (Morphine Sulfate Inj) 2 mg Q2HP PRN IV SEVERE PAIN (PS 8-10); Start 01/15/19 at 12:00 Morphine Sulfate (Morphine Sulfate Inj) 4 mg Q2HP PRN IV SEVERE PAIN (PS 8-10) Last administered on 01/15/19at 15:56; Start 01/15/19 at 12:00 Ondansetron HCl (ZOFRAN INJection) 4 mg Q4HP PRN IV NAUSEA OR VOMITING; Start 01/15/19 at 12:00; Stop 01/15/19 at 13:00; Status DC Ondansetron HCl (ZOFRAN INJection) 4 mg Q6HP PRN IV NAUSEA OR VOMITING Last administered on 01/15/19at 20:14; Start 01/15/19 at 12:00 Oxycodone/ Acetaminophen (Percocet 5mg/ 325mg Tablet) 1 tab ASDIRECTED PRN PO MILD/MODERATE PAIN (PS 1-7); Start 01/15/19 at 12:00; Stop 01/15/19 at 13:00; Status DC Pantoprazole Sodium (Protonix) 40 mg BID IV Last administered on 01/17/19at 08:01; Start 01/15/19 at 21:00 Phenylephrine HCl (Phenylephrine Syringe (100mcg/ ml)) 100 mcg Q5M IV Last administered on 01/15/19at 12:47; Start 01/15/19 at 12:45; Stop 01/15/19 at 13:06; Status DC Senna/Docusate Sodium (Senokot S) 1 tab BID PO Last administered on 01/17/19at 08:01; Start 01/15/19 at 21:00 Sodium Chloride 1,000 ml @ 250 mls/hr Q4H IV Last administered on 01/16/19at 02:34; Start 01/16/19 at 02:30; Stop 01/16/19 at 06:30; Status DC Allergies Coded Allergies: No Known Allergies (Unverified , 01/13/19) VITAL SIGNS VITAL SIGNS Laboratory Tests 01/15/19 13:30 01/15/19 20:19 01/16/19 01:50 Objective Physical Examination General Exam: Positive: Alert, Cooperative, No Acute Distress Eye Exam: Positive: PERRLA, Conjunctiva & lids normal ENT Exam: Positive: Atraumatic, Pharynx Normal, Tongue Midline, Nares Patent, Ext Auditory Canal Nml, Pinna Normal Neck Exam: Positive: Supple, +2 carotid pulse wo bruit Chest Exam: Positive: Clear to auscultation, Normal air movement Heart Exam: Positive: Rate Normal Telemetry: Positive: No significant arrhythmia Abdomen Exam: Positive: Normal bowel sounds, Soft Extremity Exam: Negative: Clubbing, Cyanosis, Edema, Normal pulses Skin Exam: Positive: Nl turgor and temperature Neuro Exam: Positive: Normal Gait, Normal Speech, Strength at 5/5 X4 ext, Normal Tone, Sensation Intact, Cranial Nerves 3-12 NL Psych Exam: Positive: Mental status NL, Mood NL, Anxiety, Memory Intact, Oriented x 3 Assessment/Plan Assessment s/p Aortic endartrectomy Plan Monitor H/H no need for transfusion at this time OOB continue haynes cont NPO-no flatus Benigno Samaniego MD Jan 17, 2019 12:50
[2019-01-17 14:58] LABS: HEMOGLOBIN 9.2 g/dl (12.0-15.5)
[2019-01-17 20:11] LABS: HEMATOCRIT 28.4 % (36.0-47.0); HEMOGLOBIN 9.1 g/dl (12.0-15.5)
[2019-01-17] MEDS: PANTOPRAZOLE 40MG TAB (PROTONIX) PO SCH (21:27)
[2019-01-18] VITALS (12 sets, daily range): BP systolic 112–150; BP diastolic 60–84
[2019-01-18 02:01] LABS: HEMATOCRIT 27.2 % (36.0-47.0); HEMOGLOBIN 8.7 g/dl (12.0-15.5)
[2019-01-18] MEDS: NORCO, ANEXSIA 5/325MG TABLET (HYDROcodone/ACETAMINOPHEN) PO PRN ×3 (04:33→14:51)
[2019-01-18] MEDS: HEPARIN SOD (PORCINE) 5000 UNITS/ML VIAL SC SCH ×2 (06:04→13:03)
[2019-01-18 08:11] LABS: HEMATOCRIT 29.2 % (36.0-47.0); HEMOGLOBIN 9.2 g/dl (12.0-15.5); MEAN CORPUSCULAR HEMOGLOBIN 27.6 pg (27.0-33.0); MEAN CORPUSCULAR HGB CONC 31.5 g/dl (32.0-36.5); MEAN CORPUSCULAR VOLUME 87.7 fl (80.0-96.0); PLATELET COUNT, AUTOMATED 234 10^3/uL (150-450); RED BLOOD COUNT 3.33 10^6/uL (4.00-5.40); WHITE BLOOD COUNT 8.6 10^3/uL (4.0-10.0)
[2019-01-18] MEDS: SENOKOT S TAB PO SCH (09:26)
[2019-01-18] MEDS: GABAPENTIN 300 MG CAP PO SCH ×2 (09:26→14:50)
[2019-01-18] MEDS: PANTOPRAZOLE 40MG TAB (PROTONIX) PO SCH (09:26)
[2019-01-18] MEDS: DOCUSATE SODIUM 100 MG CAP PO SCH (09:26)
[2019-01-18 10:29] LABS: BLOOD UREA NITROGEN 7 MG/DL (7-18); CALCIUM LEVEL 7.7 MG/DL (8.5-10.1); CARBON DIOXIDE LEVEL 27 MEQ/L (21-32); CHLORIDE LEVEL 107 MEQ/L (98-107); CREATININE FOR GFR 0.63 MG/DL (0.55-1.30); GLOMERULAR FILTRATION RATE > 60.0 (>58); GLUCOSE, FASTING 83 MG/DL (70-100); POTASSIUM SERUM 3.4 MEQ/L (3.5-5.1); SODIUM LEVEL 140 MEQ/L (136-145)
[2019-01-18] MEDS: POTASSIUM CHLORIDE 10 MEQ SR TABLET PO SCH ×2 (13:03→14:51)
[2019-01-18 14:26] LABS: HEMATOCRIT 29.7 % (36.0-47.0); HEMOGLOBIN 9.5 g/dl (12.0-15.5)
[2019-01-18] MEDS ORDERED: HYDR-3715 PO (15:08)
[2019-01-18] MEDS ORDERED: BISA10SU PR (15:08)
[2019-01-18] MEDS ORDERED: Docusate Sod/Senna PO (15:08)
[2019-01-18] MEDS ORDERED: COLA100C5 PO (15:08)
--- NOTE | 2019-01-18 15:11 | DS.PDOC ---
Discharge Summary General Date of Admission Jan 15, 2019 at 06:13 Date of Discharge 01/18/2019 Attending Physician: Benigno Samaniego MD Discharge Summary PROCEDURES PERFORMED DURING STAY: Aortic endarterectomy with patch angioplasty with Xenosure biologic patch. ADMITTING DIAGNOSES: 1. Aortic occlusion with bilateral lower extremity claudication. DISCHARGE DIAGNOSES: 1. Aortic occlusion with bilateral lower extremity claudication. COMPLICATIONS/CHIEF COMPLAINT: Aortic Occlusion. HISTORY OF PRESENT ILLNESS: Patient is a 48-year-old female who has claudication in the lower extremities who was admitted after being found to have aortic occlusion for and aortic endarterectomy for reestablishing flow into the bilateral lower extremity. HOSPITAL COURSE: Patient was admitted and underwent an aortic endarterectomy with patch angioplasty with Xenosure biologic patch. Patient had acute postoperative anemia and required transfusion on postop day 1. Patient had return of bowel function was ambulating well with good pain control was discharged home on postoperative day 3. DISCHARGE MEDICATIONS: Please see below. ALLERGIES: Please see below. PHYSICAL EXAMINATION ON DISCHARGE: VITAL SIGNS: Please see below. GENERAL: No apparent distress HEENT: Normal NECK: With no carotid bruits CARDIOVASCULAR EXAMINATION: Regular rate and rhythm RESPIRATORY EXAMINATION: Clear to auscultation bilaterally ABDOMINAL EXAMINATION: Soft nontender nondistended. The incision is clean dry and intact with claudia in place. EXTREMITIES: Warm and well-perfused SKIN: Warm well perfused NEUROLOGICAL EXAMINATION: Awake alert oriented 3 PSYCHIATRIC EXAMINATION: Normal LABORATORY DATA: Please see below. IMAGING: None PROGNOSIS: Good ACTIVITY: As tolerated. DIET: Low-fat low-cholesterol DISCHARGE PLAN: Discharge home DISPOSITION: . DISCHARGE INSTRUCTIONS: 1. Stop smoking, follow-up in the office in one week. ITEMS TO FOLLOWUP ON ON OUTPATIENT: 1. Smoking cessation. DISCHARGE CONDITION: Stable. TIME SPENT ON DISCHARGE: Greater than 45 minutes. Vital Signs/I&Os Vital Signs Date Time Temp Pulse Resp B/P (MAP) Pulse Ox O2 Delivery O2 Flow Rate FiO2 01/18/19 14:51 18 01/18/19 12:01 98.3 92 143/67 (96) 95 01/18/19 03:00 0.5 I&O- Last 24 Hours up to 6 AM 01/18/19 05:59 Intake Total 2985 ml Output Total 1950 ml Balance 1035 ml Laboratory Data Labs 24H Laboratory Tests 2 01/18/19 07:50: Nucleated Red Blood Cells % (auto) 0.0, Anion Gap 6L, Glomerular Filtration Rate > 60.0, Blood Urea Nitrogen 7, Creatinine 0.63, Sodium Level 140, Potassium Level 3.4L, Chloride Level 107, Carbon Dioxide Level 27, Calcium Level 7.7L CBC/BMP Laboratory Tests 01/17/19 20:06 01/18/19 01:55 01/18/19 07:50 Red Blood Count 3.33 L, Mean Corpuscular Volume 87.7, Mean Corpuscular Hemoglobin 27.6, Mean Corpuscular Hemoglobin Concent 31.5 L, Red Cell Distribution Width 14.8 H, Calcium Level 7.7 L 01/18/19 13:59 Discharge Medications Scheduled (Sodium Sulfacetamide/Sulf 10-5 %) 1 Emu Emu, Unknown Dose EX DAILY, (Reported) left lower leg Atorvastatin Calcium (Atorvastatin Calcium) 80 Mg Tab, 80 MG PO QHS, (Reported) Clopidogrel Bisulfate (Clopidogrel) 75 Mg Tab, 75 MG PO DAILY, (Reported) Docusate Sodium (Colace) 100 Mg Cap, 100 MG PO BID Ergocalciferol (Vitamin D) 50,000 Unit Cap, 50,000 UNIT PO QWEEK, (Reported) friday Gabapentin (Gabapentin) 300 Mg Cap, 300 MG PO TID, (Reported) [Docusate Sod/Senna] 1 TAB TAB, 1 TAB PO BID Scheduled PRN Acetaminophen/Hydrocodone ([place], Anexsia 5/325) 1 Tab Tab, 1 TAB PO Q4HP PRN for MODERATE PAIN (PS 5-7) Bisacodyl (Bisac-Evac) 10 Mg Supp, 10 MG VT DAILYPRN PRN for CONSTIPATION Allergies Coded Allergies: No Known Allergies (Unverified , 01/13/19) Benigno Samaniego MD Jan 18, 2019 15:11
--- NOTE | 2019-01-18 15:12 | ROOPDOC ---
Benigno Samaniego MD Jan 18, 2019 15:12
--- NOTE | 2019-01-20 14:35 | RO ---
DATE OF PROCEDURE: 01/15/2019 PREOPERATIVE DIAGNOSES: Bilateral lower extremity claudication. Aortic occlusion. POSTOPERATIVE DIAGNOSES: Bilateral lower extremity claudication. Aortic occlusion. PROCEDURE: Aortic endarterectomy with patch angioplasty with XenoSure biologic patch. ATTENDING SURGEON: Dr. Sunny Samaniego WORKPLACE RELATIONS ADVISER: None. ANESTHESIA: General endotracheal. INDICATION: The patient is a 48-year-old female with aortic occlusion and bilateral lower extremity claudication. The patient will undergo aortic endarterectomy with possible aortoiliac and/or aortobifemoral bypass. Risks, benefits and alternative treatment options were discussed with the patient. ESTIMATED BLOOD LOSS: 2000 mL. IV FLUIDS: 1152 mL of Cell Saver, 3700 mL of crystalloid. HEPARIN: 7000 units followed by an additional 3000 units, protamine 50 mg. SPECIMEN: Aortic plaque. URINE OUTPUT: 100 mL via [place]. COMPLICATIONS: None. DRAINS: None. IMPLANTS: XenoSure biologic patch used to perform patch angioplasty of the aorta. PROCEDURE: The patient was taken to the operating room, placed supine on the operating room table and then prepped and draped in a standard surgical fashion. The incision was carried down in the midline through the skin and subcutaneous tissues using a scalpel. The Bovie was used to open the fascia in the midline and entered the abdominal cavity. Retractors were placed. The retroperitoneum was opened exposing the aorta. The aorta was clamped above the plaque just below the renal arteries and distal to the CRISTIAN. The aorta was opened and the plaque was removed and the arteriotomy was closed with a later XenoSure biologic patch and #6-0 Prolene suture. Flow was reestablished with good flow noted in the iliac arteries distally. The retroperitoneum was closed using #2-0 Vicryl suture. The bowel and omentum was replaced into normal location. Seprafilm was placed along the course of the incision. Incision was closed using looped PDS suture in a running continuous fashion. The skin was closed with claudia. All instrument, sponge and needle counts were correct at the end the case. There were no complications. Dr. Samaniego was present for and directed the entire case. The patient was transferred to the recovery room awake, alert, extubated and in stable condition.
== END 2019-01-18 15:53 | disposition home or self-care (01) | DRG 269 ==
LOC: M OR 06:13 → M ICU 14:11
PROVIDERS: ADMIT Surgery Vascular Surgery; ATTEND Surgery Vascular Surgery
PROC: 04U Lower Arteries, Supplement (ICD-10-PCS; 2019-01-15)
PROC: 04C00ZZ Extirpation of Matter from Abdominal Aorta, Open Approach (ICD-10-PCS; principal; 2019-01-15 07:30)
DX: I70.213 Atherosclerosis of native arteries of extremities with intermittent claudication, bilateral legs (principal); I70.0 Atherosclerosis of aorta; F17.200 Nicotine dependence, unspecified, uncomplicated; Z79.899 Other long term (current) drug therapy; E78.5 Hyperlipidemia, unspecified; E55.9 Vitamin D deficiency, unspecified

== ENCOUNTER → 2019-01-21 | Outpatient (REF) | payer MEDICARE ==
[~2019-01-21] MED LIST changes: +BISA10SU PR; +COLA100C5 PO; +Docusate Sod/Senna PO; +HYDR-3715 PO; -LIDOCAINE 1% MDV 20ML VIAL SQ PRN; -LR 1,000 ML IV ONE
[2019-01-21 12:37] LABS: BASO # 0.1 10^3/uL (0.0-0.2); BASO % 0.5 % (0.0-1.0); EOS # 0.3 10^3/uL (0.0-0.50); HEMATOCRIT 34.2 % (36.0-47.0); HEMOGLOBIN 10.7 g/dl (12.0-15.5); LYMPH # 2.2 10^3/uL (1.5-4.5); LYMPH % 17.1 % (24.0-44.0); MEAN CORPUSCULAR HEMOGLOBIN 27.6 pg (27.0-33.0); MEAN CORPUSCULAR HGB CONC 31.3 g/dl (32.0-36.5); MEAN CORPUSCULAR VOLUME 88.1 fl (80.0-96.0); MONO # 1.1 10^3/uL (0.0-0.8); MONO % 8.4 % (0.0-5.0); NEUTROPHILS # 8.9 10^3/uL (1.8-7.7); NEUTROPHILS % 69.3 % (36.0-66.0); PLATELET COUNT, AUTOMATED 388 10^3/uL (150-450); RED BLOOD COUNT 3.88 10^6/uL (4.00-5.40); WHITE BLOOD COUNT 12.8 10^3/uL (4.0-10.0)
[2019-01-21 12:43] LABS: BLOOD UREA NITROGEN 5 MG/DL (7-18); CALCIUM LEVEL 9.2 MG/DL (8.5-10.1); CARBON DIOXIDE LEVEL 29 MEQ/L (21-32); CHLORIDE LEVEL 105 MEQ/L (98-107); CREATININE FOR GFR 0.71 MG/DL (0.55-1.30); GLOMERULAR FILTRATION RATE > 60.0 (>58); GLUCOSE, FASTING 91 MG/DL (70-100); POTASSIUM SERUM 4.7 MEQ/L (3.5-5.1); SODIUM LEVEL 141 MEQ/L (136-145)
== END ==
LOC: M SFHCADAM 09:51
PROVIDERS: ATTEND Physician Assistant Medical
DX: I70.0 Atherosclerosis of aorta (principal); D62 Acute posthemorrhagic anemia; E87.6 Hypokalemia
CPT/HCPCS: 80048; 85025; G0463

== ENCOUNTER → 2019-03-22 | Outpatient (CLI) | payer MEDICARE ==
--- NOTE | 2019-03-22 12:20 | REP ---
REASON: Status post abdominal aortic endarterectomy. Multiple ultrasonographic images of the abdominal aorta were obtained from the level of the celiac access to the aortoiliac bifurcation and the longitudinal and transverse scan planes along with color Doppler imaging. The maximal AP dimension of the abdominal aorta as measured in the longitudinal scan plane is 1.9cm IMPRESSION: No evidence of abdominal aortic aneurysm. Electronically Signed by Kiran Boles DO 03/22/2019 01:01 P
== END ==
LOC: M RAD 09:14
PROVIDERS: ATTEND Physician Assistant
DX: I70.0 Atherosclerosis of aorta (principal)

== ENCOUNTER → 2019-07-01 | Outpatient (CLI) | payer MEDICARE ==
[~2019-07-01] MED LIST changes: +INDO-16 PO; -INDO25CA PO
--- NOTE | 2019-07-01 11:55 | REPMRS ---
Patient History The patient states she had a clinical breast exam in 06/2019. Family history of endometrial cancer at age 50 or over in maternal grandmother. No Hormone Replacement Therapy 3D TOMOSYNTHESIS WAS PERFORMED. [facility] for [facility] 8.4%. Digital Woman Screen Mammo: July 01, 2019 - Exam #: [id number] Bilateral CC and MLO view(s) were taken. Technologist: Masha Ortega, Technologist Prior study comparison: July 08, 2018, right breast digital mammo diagnostic unilateral, performed at [facility]. July 02, 2018, bilateral digital woman screen mammo performed at [facility]. FINDINGS: There are scattered fibroglandular densities. There has been no change in the appearance of the mammogram from the prior studies. There is a mild amount of residual fibroglandular tissue which is fairly symmetric. There is no interval development of dominant mass, architectural distortion, or clustered microcalcification suggestive of malignancy. Assessment: BI-RADS/ACR category 1 mammogram. Negative Mammogram. Recommendation Routine screening mammogram in 1 year (for women over age 40). This mammogram was interpreted with the aid of an FDA-approved computer-aided dectection system. Electronically Signed By: Leonardo Camara MD 07/01/19 [id number]
== END ==
LOC: M WHC 10:18
PROVIDERS: ATTEND Nurse Practitioner Family
DX: Z12.31 Encounter for screening mammogram for malignant neoplasm of breast (principal); R10.2 Pelvic and perineal pain; Z80.49 Family history of malignant neoplasm of other genital organs
CPT/HCPCS: 77063; 77067; G0463

== ENCOUNTER → 2019-08-31 | Outpatient (REF) | payer MEDICARE ==
[2019-08-31 11:19] LABS: BASO # 0.1 10^3/uL (0.0-0.2); BASO % 0.8 % (0.0-1.0); EOS # 0.1 10^3/uL (0.0-0.5); EOS % 1.5 % (0.0-3.0); HEMATOCRIT 45.6 % (36.0-47.0); HEMOGLOBIN 14.1 g/dl (12.0-15.5); LYMPH # 2.8 10^3/uL (1.5-5.0); LYMPH % 31.2 % (24.0-44.0); MEAN CORPUSCULAR HEMOGLOBIN 27.3 pg (27.0-33.0); MEAN CORPUSCULAR HGB CONC 30.9 g/dl (32.0-36.5); MEAN CORPUSCULAR VOLUME 88.2 fl (80.0-96.0); MONO # 0.5 10^3/uL (0.0-0.8); MONO % 6.1 % (0.0-5.0); NEUTROPHILS # 5.3 10^3/uL (1.5-8.5); NEUTROPHILS % 59.5 % (36.0-66.0); PLATELET COUNT, AUTOMATED 294 10^3/uL (150-450); RED BLOOD COUNT 5.17 10^6/uL (4.00-5.40); WHITE BLOOD COUNT 8.9 10^3/uL (4.0-10.0)
[2019-08-31 11:36] LABS: ALBUMIN 3.5 GM/DL (3.2-5.2); ALT/SGPT 23 U/L (12-78); BILIRUBIN,TOTAL 0.7 MG/DL (0.2-1.0); BLOOD UREA NITROGEN 11 MG/DL (7-18); CARBON DIOXIDE LEVEL 27 MEQ/L (21-32); CHLORIDE LEVEL 107 MEQ/L (98-107); CHOLESTEROL LEVEL 149 MG/DL (<200); CREATININE FOR GFR 0.74 MG/DL (0.55-1.30); GLOMERULAR FILTRATION RATE > 60.0 (>58); GLUCOSE, FASTING 86 MG/DL (70-100); HDL CHOLESTEROL 49 MG/DL (>40); LDL CHOLESTEROL 67 MG/DL (<100); NON-HDL-C 100 MG/DL; POTASSIUM SERUM 4.6 MEQ/L (3.5-5.1); SODIUM LEVEL 141 MEQ/L (136-145); TOTAL 25(OH) VITAMIN D 31.7 NG/ML (30.0-100.0); TOTAL PROTEIN 6.2 GM/DL (6.4-8.2); TRIGLYCERIDES LEVEL 164 MG/DL (<150)
== END ==
LOC: M SFHCADAM 07:57
PROVIDERS: ATTEND Physician Assistant Medical
DX: I70.0 Atherosclerosis of aorta (principal); E66.01 Morbid (severe) obesity due to excess calories; E78.2 Mixed hyperlipidemia; E55.9 Vitamin D deficiency, unspecified

== ENCOUNTER → 2019-09-01 | Outpatient (CLI) | payer MEDICARE ==
--- NOTE | 2019-09-01 11:11 | REP ---
Abdominal aortic sonography: History: Atherosclerosis of the aorta. Comparison aortic sonography March 22, 2019. The patient is status post aortic endarterectomy. . Findings: Scanning through the retroperitoneum demonstrates that the abdominal aorta is normal in caliber at the level of the diaphragmatic hiatus measuring 1.9 by 2.2 cm in AP by transverse dimension respectively. The measurements of the aorta at the level of the renal artery origins is 1.9 x 2.4 cm in AP by transverse dimension diameter respectively. The distal aorta tapers to 1.7 x 1.8 cm AP by transverse dimension. No periaortic disease is appreciated. The right and left common iliac arteries are normal measuring 0.7 and 0.8 cm in AP dimension respectively. No aneurysm is seen. No periaortic disease is observed. Impression: Negative abdominal aortic sonography. No evidence of aneurysm rupture or periaortic hematoma. Electronically Signed by Vinicius Tomlinson MD 09/01/2019 11:02 A
== END ==
LOC: M RAD 08:12
PROVIDERS: ATTEND Physician Assistant
DX: I70.0 Atherosclerosis of aorta (principal)

== ENCOUNTER → 2019-09-01 | Outpatient (CLI) | payer MEDICARE ==
--- NOTE | 2019-09-01 12:33 | REP ---
PELVIC SONOGRAPHY: HISTORY: Left-sided pelvic pain. History of cysts. Comparison CT study, December 01, 2018. Comparison pelvic sonography, July 02, 2018 showed a 2.9 cm fundal fibroid. SONOGRAPHIC FINDINGS: Visualized bladder majano are smooth. Uterine dimensions are normal at 9.9 x 4.4 x 4.6 cm. Endometrial echo is 0.6 cm thick. No focal uterine mass is visible today. Left ovary is normal in appearance measuring 1.7 x 1.9 x 1.5 cm. There is a hypoechoic area adjacent to the right ovary consistent with a right ovarian follicle cyst. This measures 2.5 x 3.4 x 1.6 cm. Ovarian Doppler flow is normal bilaterally. Resistive indices are 0.51 and 0.65 on the right and left ovary, respectively. IMPRESSION: There is a 3.4 x 2.5 x 1.6 cm cystic area in the right ovary. Otherwise normal pelvic sonography. Electronically Signed by Vinicius Tomlinson MD 09/01/2019 12:57 P
== END ==
LOC: M RAD 09:04
PROVIDERS: ATTEND Nurse Practitioner Family
DX: R10.2 Pelvic and perineal pain (principal); N83.201 Unspecified ovarian cyst, right side

== ENCOUNTER → 2019-11-16 | Outpatient (CLI) | payer MEDICARE ==
--- NOTE | 2019-11-16 13:16 | REP ---
Pelvic ultrasound for ovarian cyst follow-up: The studies performed with transabdominal and endovaginal imaging. Comparison is 09/01/2019. On the comparison study there was a right adnexal cyst that measured 3.4 x 2.5 x 1.6 cm. On the study today the uterus is normal size and anteverted measuring 8.1 x 3.8 x 4.8 cm. The endometrium is not thickened measuring 5.4 mm. The right and left ovaries could not be visualized today at the with transabdominal or endovaginal imaging. Because of a large volume of peristalsing bowel. Impression: Incomplete study. Large volume of peristalsing bowel obscures the ovaries. The uterus is unremarkable. Electronically Signed by Leonrado Madsen MD 11/16/2019 01:08 P
== END ==
LOC: M RAD 09:41
PROVIDERS: ATTEND Nurse Practitioner Family
DX: N83.201 Unspecified ovarian cyst, right side (principal)

== ENCOUNTER → 2019-11-16 | Outpatient (CLI) | payer MEDICARE ==
--- NOTE | 2019-11-16 12:55 | REP ---
Bilateral lower extremity arterial Doppler ultrasound: Right lower extremity: Brachial peak systole: 144 mmHg. Dorsalis pedis peak systole: 142 mmHg. DRIVER'S LICENSE EXAMINER peak systole: 146 mmHg. PA: 1.0. Peak Systolic Phasicity Velocity CHAIN MORTISER OPERATOR 156 triphasic Profunda 93.3 triphasic SFA prox 119 triphasic SFA mid 113 triphasic SFA dist 107 triphasic Pop 44.5 triphasic ARA prox 37.7 triphasic Tib/P tr 76.3 triphasic DRIVER'S LICENSE EXAMINER pr 49.0 biphasic DRIVER'S LICENSE EXAMINER dst 66.9 biphasic ARA dst 75.7 triphasic Left lower extremity: Brachial peak systole 130 mmHg. Dorsalis pedis peak systole: 142 mmHg. DRIVER'S LICENSE EXAMINER peak systole: 140 mmHg. PHILLY 1.0. Peak Systolic Phasicity Velocity CHAIN MORTISER OPERATOR 155 triphasic Profunda 74.5 triphasic SFA prox 102 triphasic SFA mid 110 triphasic SFA dist 89.4 triphasic Pop 49.9 triphasic ARA prox 32.9 triphasic Tib/P tr 56.4 triphasic DRIVER'S LICENSE EXAMINER pr 51.7 triphasic DRIVER'S LICENSE EXAMINER dst 42.6 biphasic ARA dst 67.3 biphasic Impression: There is no Doppler ultrasound evidence of stenosis on the right on the left. Electronically Signed by Leonardo Madsen MD 11/16/2019 12:46 P
== END ==
LOC: M RAD 09:45
PROVIDERS: ATTEND Physician Assistant
DX: I73.9 Peripheral vascular disease, unspecified (principal); N83.201 Unspecified ovarian cyst, right side

== ENCOUNTER → 2020-08-11 | Outpatient (REF) | payer MEDICARE | LOC: M SFHCWAGY 13:19 | PROVIDERS: ATTEND Nurse Practitioner Family | DX: Z12.4 Encounter for screening for malignant neoplasm of cervix (principal) | CPT/HCPCS: 87624; G0123 ==

== ENCOUNTER → 2020-08-11 | Outpatient (CLI) | payer MEDICARE ==
--- NOTE | 2020-08-11 12:29 | REPMRS ---
Patient History The patient states she had a clinical breast exam in July 2020.Family history of endometrial cancer at age 50 or over in maternal grandmother. No Hormone Replacement Therapy 3D TOMOSYNTHESIS WAS PERFORMED. The [facility] lifetime risk for breast cancer is 8.6%. Volpara breast density a. Digital Woman Screen Mammo: August 11, 2020 - Exam #: [id number] Bilateral CC and MLO view(s) were taken. Technologist: Negra Verdugo, Technologist Prior study comparison: July 01, 2019, bilateral digital woman screen mammo performed at [facility]. July 08, 2018, right breast digital mammo diagnostic unilateral, performed at [facility]. FINDINGS: There are scattered fibroglandular densities. There has been no change in the appearance of the mammogram from the prior studies. There is a mild amount of residual fibroglandular tissue which is fairly symmetric. There is no interval development of dominant mass, architectural distortion, or clustered microcalcification suggestive of malignancy. Assessment: BI-RADS/ACR category 1 mammogram. Negative Mammogram. Recommendation Routine screening mammogram in 1 year (for women over age 40). This mammogram was interpreted with the aid of an FDA-approved computer-aided dectection system. Electronically Signed By: Leonardo Camara MD 08/11/20 [id number]
== END ==
LOC: M WHC 09:41
PROVIDERS: ATTEND Nurse Practitioner Family
DX: Z12.31 Encounter for screening mammogram for malignant neoplasm of breast (principal); Z12.4 Encounter for screening for malignant neoplasm of cervix
CPT/HCPCS: 77063; 77067; 87624; G0123; G0463

== ENCOUNTER → 2020-12-26 | Outpatient (CLI) | payer MEDICARE ==
[~2020-12-26] MED LIST changes: +GABA-282 PO; -GABA-843 PO
--- NOTE | 2020-12-26 10:55 | REP ---
INDICATION: ATH EUSEBIA ART OF EXT INTRMT NATHALIE, MALIA LEGS COMPARISON: 11/16/2019. TECHNIQUE: Real time camara scale and Duplex Doppler evaluation of the bilateral lower extremity arterial vasculature using linear high frequency transducer. FINDINGS: Camara scale and duplex doppler images demonstrate mild scattered plaquing bilaterally. Diffuse triphasic waveforms are noted with biphasic waveforms in the distal anterior posterior tibial arteries bilaterally. PHILLY on the right is 0.9 and left 1.0. There is no hemodynamically significant stenosis bilaterally. There is no arterial occlusion. Peak systolic velocities (cm/sec) Common femoral artery: Right 162; Left 147 Profunda femoris: Right 78; Left 76 SFA (proximal): Right 107; Left 104 SFA (mid): Right 116; Left 112 SFA (distal): Right 93; Left 75 Popliteal artery: Right 55; Left 48 ARA (prox.): Right 59; Left 42 Tibioperoneal trunk: Right 56; Left 37 HEALTH INSURANCE SPECIALIST (prox.): Right 69; Left 55 HEALTH INSURANCE SPECIALIST (distal): Right 41; Left 44 ARA (distal): Right 49; Left 55 IMPRESSION: Mild scattered plaquing bilaterally. No hemodynamically significant stenosis or arterial occlusion. <Electronically signed by Leonardo Camara > 12/26/20 [id number]
== END ==
LOC: M RAD 09:07
PROVIDERS: ATTEND Physician Assistant
DX: I70.213 Atherosclerosis of native arteries of extremities with intermittent claudication, bilateral legs (principal)

== ENCOUNTER → 2020-12-27 | Outpatient (CLI) | payer MEDICARE ==
--- NOTE | 2020-12-27 11:07 | REP ---
INDICATION: R10.2 PELVIC PAIN. COMPARISON: 11/16/2019. TECHNIQUE: Transabdominal and transvaginal scanning performed. FINDINGS: Uterine dimensions are 9.4 x 4.5 x 5.7 cm. Endometrial echo is 5 mm in AP dimension and centrally placed. Endometrial echotexture is mildly heterogeneous. There is no new endometrial fluid collection. The bladder is not distended . The right ovary has dimensions of 3.0 x 1.7 x 1.8 cm. The left ovary dimensions are 2.4 x 1.5 x 1.1 cm. Two cystic structures are seen in the right ovary measuring 1.3 x 1.3 x 0.9 cm and 1.4 x 1.3 x 1.4 cm. No free fluid is seen in the cul-de-sac. IMPRESSION: Endometrium is heterogeneous in echotexture and has an AP thickness of 5 mm.. This needs to be correlated with the patient's clinical findings and menstrual history. Two small cystic structures right ovary are of doubtful significance, measuring 1.3 and 1.4 cm in maximum diameter. <Electronically signed by Leonardo Camara > 12/27/20 1101
== END ==
LOC: M WHC 10:02
PROVIDERS: ATTEND Nurse Practitioner Family
DX: R10.2 Pelvic and perineal pain (principal)

== ENCOUNTER → 2021-01-15 | Outpatient (REF) | payer MEDICARE ==
[2021-01-15 12:49] LABS: BASO # 0.1 10^3/uL (0.0-0.2); EOS # 0.1 10^3/uL (0.0-0.5); EOS % 1.1 % (0.0-3.0); HEMATOCRIT 46.8 % (36.0-47.0); HEMOGLOBIN 14.7 g/dl (12.0-15.5); LYMPH # 2.5 10^3/uL (1.5-5.0); LYMPH % 27.2 % (24.0-44.0); MEAN CORPUSCULAR HEMOGLOBIN 27.3 pg (27.0-33.0); MEAN CORPUSCULAR HGB CONC 31.4 g/dl (32.0-36.5); MEAN CORPUSCULAR VOLUME 86.8 fl (80.0-96.0); MONO # 0.6 10^3/uL (0.0-0.8); MONO % 6.2 % (2.0-8.0); NEUTROPHILS # 5.8 10^3/uL (1.5-8.5); NEUTROPHILS % 63.8 % (36.0-66.0); PLATELET COUNT, AUTOMATED 336 10^3/uL (150-450); RED BLOOD COUNT 5.39 10^6/uL (4.00-5.40); WHITE BLOOD COUNT 9.1 10^3/uL (4.0-10.0)
[2021-01-15 13:33] LABS: ALBUMIN 3.9 GM/DL (3.2-5.2); ALT/SGPT 24 U/L (12-78); BILIRUBIN,TOTAL 0.4 MG/DL (0.2-1.0); BLOOD UREA NITROGEN 10 MG/DL (7-18); CALCIUM LEVEL 9.7 MG/DL (8.5-10.1); CARBON DIOXIDE LEVEL 28 MEQ/L (21-32); CHLORIDE LEVEL 103 MEQ/L (98-107); CHOLESTEROL LEVEL 177 MG/DL (<200); CHOLESTEROL RISK RATIO 3.051 (<5); CREATININE FOR GFR 0.82 MG/DL (0.55-1.30); GLOMERULAR FILTRATION RATE > 60.0 (>51); GLUCOSE, FASTING 83 MG/DL (70-100); HDL CHOLESTEROL 58 MG/DL (>40); LDL CHOLESTEROL 88 MG/DL (<100); NON-HDL-C 119 MG/DL; POTASSIUM SERUM 4.9 MEQ/L (3.5-5.1); SODIUM LEVEL 137 MEQ/L (136-145); TOTAL 25(OH) VITAMIN D 37.1 NG/ML (30.0-100.0); TOTAL PROTEIN 7.2 GM/DL (6.4-8.2); TRIGLYCERIDES LEVEL 155 MG/DL (<150)
== END ==
LOC: M SFHCADAM 09:52
PROVIDERS: ATTEND Physician Assistant Medical
DX: E55.9 Vitamin D deficiency, unspecified (principal); E66.01 Morbid (severe) obesity due to excess calories; Z79.899 Other long term (current) drug therapy

== ENCOUNTER → 2022-01-21 | Outpatient (REF) | payer MEDICARE ==
[2022-01-21 13:07] LABS: BASO # 0.1 10^3/uL (0.0-0.2); BASO % 0.6 % (0.0-1.0); EOS # 0.2 10^3/uL (0.0-0.5); EOS % 1.7 % (0.0-3.0); HEMATOCRIT 48.5 % (36.0-47.0); HEMOGLOBIN 15.5 g/dl (12.0-15.5); LYMPH # 2.8 10^3/uL (1.5-5.0); MEAN CORPUSCULAR HEMOGLOBIN 27.2 pg (27.0-33.0); MEAN CORPUSCULAR VOLUME 85.1 fl (80.0-96.0); MONO # 0.5 10^3/uL (0.0-0.8); MONO % 5.1 % (2.0-8.0); NEUTROPHILS # 6.3 10^3/uL (1.5-8.5); NEUTROPHILS % 63.9 % (36.0-66.0); PLATELET COUNT, AUTOMATED 313 10^3/uL (150-450); WHITE BLOOD COUNT 9.9 10^3/uL (4.0-10.0)
[2022-01-21 13:44] LABS: ALT/SGPT 25 U/L (12-78); BILIRUBIN,TOTAL 0.5 MG/DL (0.2-1.0); BLOOD UREA NITROGEN 9 MG/DL (7-18); CALCIUM LEVEL 9.8 MG/DL (8.5-10.1); CARBON DIOXIDE LEVEL 30 MEQ/L (21-32); CHLORIDE LEVEL 105 MEQ/L (98-107); CHOLESTEROL LEVEL 178 MG/DL (<200); CHOLESTEROL RISK RATIO 3.236 (<5); CREATININE FOR GFR 0.76 MG/DL (0.55-1.30); GLOMERULAR FILTRATION RATE > 60.0 (>51); GLUCOSE, FASTING 79 MG/DL (70-100); HDL CHOLESTEROL 55 MG/DL (>40); LDL CHOLESTEROL 95 MG/DL (<100); NON-HDL-C 123 MG/DL; POTASSIUM SERUM 4.8 MEQ/L (3.5-5.1); SODIUM LEVEL 138 MEQ/L (136-145); TOTAL PROTEIN 7.1 GM/DL (6.4-8.2); TRIGLYCERIDES LEVEL 141 MG/DL (<150)
== END ==
LOC: M SFHCADAM 10:01
PROVIDERS: ATTEND Physician Assistant Medical
DX: E78.2 Mixed hyperlipidemia (principal); F17.210 Nicotine dependence, cigarettes, uncomplicated; E66.01 Morbid (severe) obesity due to excess calories; I70.0 Atherosclerosis of aorta

== ENCOUNTER → 2022-02-06 | Outpatient (CLI) | payer MEDICARE | LOC: M RAD 09:25 | PROVIDERS: ATTEND Physician Assistant Medical | DX: Z12.2 Encounter for screening for malignant neoplasm of respiratory organs (principal); F17.210 Nicotine dependence, cigarettes, uncomplicated; R91.1 Solitary pulmonary nodule ==

== ENCOUNTER → 2022-06-23 | Outpatient (CLI) | payer MEDICARE ==
[~2022-06-23] MED LIST changes: +BUPR-71 PO; +ECOT81TA5 PO; +FISH1000 PO; +VITA200032 PO; +ZINC220CA PO
== END ==
LOC: M LABSMTC 09:55
PROVIDERS: ATTEND Anesthesiology
DX: Z01.812 Encounter for preprocedural laboratory examination (principal); Z20.822 Contact with and (suspected) exposure to COVID-19

== ENCOUNTER 2022-06-26 07:59 | Day surgery (SDC) | payer MEDICARE ==
[~2022-06-26] VITALS: Ht 165.1 cm; Wt 83.0 kg
[~2022-06-26 07:59] MED LIST changes: +NS 1,000 ML IV ONE
[2022-06-26] MEDS ORDERED: propofoL 200 MG/20 ML VIAL As Ordered ONE ×2 (09:24→09:52)
[2022-06-26] MEDS ORDERED: fentaNYL 100 MCG/2 ML INJECTION As Ordered ONE (09:25)
[2022-06-26 10:26] VITALS: BP 124/68
== END 2022-06-26 10:27 | disposition home or self-care (01) ==
LOC: M OPP 07:59
PROVIDERS: ATTEND Surgery
DX: Z12.11 Encounter for screening for malignant neoplasm of colon (principal); K63.5 Polyp of colon; I73.9 Peripheral vascular disease, unspecified; E78.5 Hyperlipidemia, unspecified; F41.9 Anxiety disorder, unspecified; G43.909 Migraine, unspecified, not intractable, without status migrainosus; J44.9 Chronic obstructive pulmonary disease, unspecified; Z79.02 Long term (current) use of antithrombotics/antiplatelets; Z79.82 Long term (current) use of aspirin; Z79.899 Other long term (current) drug therapy
CPT/HCPCS: 45380; 45385; 88305; J3010

== ENCOUNTER → 2022-08-12 | Outpatient (CLI) | payer MEDICARE ==
[~2022-08-12] MED LIST changes: -NS 1,000 ML IV ONE
== END ==
LOC: M PLAIMG 09:34
PROVIDERS: ATTEND Physician Assistant Medical
DX: R91.1 Solitary pulmonary nodule (principal)

== ENCOUNTER → 2022-12-09 | Outpatient (CLI) | payer MEDICARE | LOC: M WHC 09:01 | PROVIDERS: ATTEND Physician Assistant Medical | DX: N95.0 Postmenopausal bleeding (principal); R10.2 Pelvic and perineal pain; N83.202 Unspecified ovarian cyst, left side; N85.8 Other specified noninflammatory disorders of uterus ==

== ENCOUNTER → 2022-12-31 | Outpatient (REF) | payer MEDICARE | LOC: M SFHCWAGY 17:21 | PROVIDERS: ATTEND Nurse Practitioner Family | DX: Z12.4 Encounter for screening for malignant neoplasm of cervix (principal) ==

== ENCOUNTER → 2023-01-02 | Outpatient (REF) | payer MEDICARE | LOC: M PLALAB 10:56 | PROVIDERS: ATTEND Nurse Practitioner Family | DX: N85.8 Other specified noninflammatory disorders of uterus (principal); N95.0 Postmenopausal bleeding ==

== ENCOUNTER → 2023-01-02 | Outpatient (CLI) | payer MEDICARE | LOC: M PLALAB 09:27 | PROVIDERS: ATTEND Nurse Practitioner Family | DX: Z79.899 Other long term (current) drug therapy (principal); Z80.49 Family history of malignant neoplasm of other genital organs ==

== ENCOUNTER → 2023-01-23 | Outpatient (REF) | payer MEDICARE ==
[2023-01-23 14:47] LABS: BASO # 0.1 10^3/uL (0.0-0.2); BASO % 0.9 % (0.0-1.0); EOS # 0.2 10^3/uL (0.0-0.5); EOS % 1.8 % (0.0-3.0); HEMATOCRIT 48.7 % (36.0-47.0); HEMOGLOBIN 15.2 g/dl (12.0-15.5); LYMPH # 2.7 10^3/uL (1.5-5.0); LYMPH % 25.3 % (24.0-44.0); MEAN CORPUSCULAR HEMOGLOBIN 26.9 pg (27.0-33.0); MEAN CORPUSCULAR HGB CONC 31.2 g/dl (32.0-36.5); MEAN CORPUSCULAR VOLUME 86.2 fl (80.0-96.0); MONO # 0.6 10^3/uL (0.0-0.8); MONO % 5.9 % (2.0-8.0); NEUTROPHILS # 6.9 10^3/uL (1.5-8.5); NEUTROPHILS % 65.2 % (36.0-66.0); PLATELET COUNT, AUTOMATED 350 10^3/uL (150-450); RED BLOOD COUNT 5.65 10^6/uL (4.00-5.40); WHITE BLOOD COUNT 10.5 10^3/uL (4.0-10.0)
[2023-01-23 14:49] LABS: ALBUMIN 3.7 G/DL (3.2-5.2); ALKALINE PHOSPHATASE 77 U/L (46-116); ALT/SGPT 12 U/L (7.0-40); AST/SGOT 16 U/L (<34); BILIRUBIN,TOTAL 0.6 MG/DL (0.3-1.2); BLOOD UREA NITROGEN 8 MG/DL (9-23); CALCIUM LEVEL 9.4 MG/DL (8.5-10.1); CARBON DIOXIDE LEVEL 28 MMOL/L (20-31); CHLORIDE LEVEL 103 MMOL/L (98-107); CHOLESTEROL LEVEL 197 MG/DL (<200); CREATININE FOR GFR 0.77 MG/DL (0.55-1.30); GLOMERULAR FILTRATION RATE > 60.0 (>51); GLUCOSE, FASTING 97 MG/DL (60-100); HDL CHOLESTEROL 50.5 MG/DL (>40); LDL CHOLESTEROL 119.1 MG/DL (<100); NON-HDL-C 146.5 MG/DL; POTASSIUM SERUM 4.8 MMOL/L (3.5-5.1); SODIUM LEVEL 137 MMOL/L (136-145); TOTAL PROTEIN 6.6 G/DL (5.7-8.2); TRIGLYCERIDES LEVEL 137 MG/DL (<150)
[2023-01-23 14:50] LABS: THYROID STIMULATING HORMONE 2.093 uIU/ML (0.55-4.78)
[2023-01-23 14:51] LABS: TOTAL 25(OH) VITAMIN D 26.8 NG/ML (20.0-100.0)
== END ==
LOC: M SFHCADAM 09:41
PROVIDERS: ATTEND Physician Assistant Medical
DX: E78.2 Mixed hyperlipidemia (principal); E55.9 Vitamin D deficiency, unspecified; I70.0 Atherosclerosis of aorta; Z79.899 Other long term (current) drug therapy

== ENCOUNTER → 2023-06-10 | Outpatient (CLI) | payer MEDICARE ==
[~2023-06-10] MED LIST changes: +[UNRECOGNIZED DRUG - CODE] EX; -[UNRECOGNIZED DRUG - CODE] EX
== END ==
LOC: M ADAMS 15:28
PROVIDERS: ATTEND Physician Assistant Medical
DX: R07.81 Pleurodynia (principal); Z91.81 History of falling

== ENCOUNTER → 2023-10-08 | Outpatient (CLI) | payer MEDICARE | LOC: M RAD 09:40 | PROVIDERS: ATTEND Physician Assistant Medical | DX: R91.1 Solitary pulmonary nodule (principal); F17.210 Nicotine dependence, cigarettes, uncomplicated; Z12.2 Encounter for screening for malignant neoplasm of respiratory organs ==

== ENCOUNTER → 2023-10-10 | Outpatient (REF) | payer MEDICARE | LOC: M SFHCDERM 13:47 | PROVIDERS: ATTEND Physician Assistant | DX: D49.2 Neoplasm of unspecified behavior of bone, soft tissue, and skin (principal) ==

== ENCOUNTER → 2024-02-02 | Outpatient (REF) | payer MEDICARE ==
[2024-02-02 13:03] LABS: LIPASE 36 U/L (12-53)
[2024-02-02 13:05] LABS: ALBUMIN 3.4 G/DL (3.2-5.2); ALKALINE PHOSPHATASE 83 U/L (46-116); ALT/SGPT 21 U/L (7.0-40); AST/SGOT 17 U/L (<34); BILIRUBIN,TOTAL 0.4 MG/DL (0.3-1.2); BLOOD UREA NITROGEN 8 MG/DL (9-23); CALCIUM LEVEL 9.8 MG/DL (8.5-10.1); CARBON DIOXIDE LEVEL 32 MMOL/L (20-31); CHLORIDE LEVEL 104 MMOL/L (98-107); CHOLESTEROL LEVEL 143 MG/DL (<200); CHOLESTEROL RISK RATIO 3.15 (<5); CREATININE FOR GFR 0.74 MG/DL (0.55-1.30); GLOMERULAR FILTRATION RATE > 60.0 (>51); GLUCOSE, FASTING 74 MG/DL (60-100); HDL CHOLESTEROL 45.3 MG/DL (>40); LDL CHOLESTEROL 70.5 MG/DL (<100); NON-HDL-C 97.7 MG/DL; POTASSIUM SERUM 4.6 MMOL/L (3.5-5.1); SODIUM LEVEL 141 MMOL/L (136-145); TOTAL PROTEIN 6.7 G/DL (5.7-8.2); TRIGLYCERIDES LEVEL 136 MG/DL (<150)
[2024-02-02 13:06] LABS: THYROID STIMULATING HORMONE 1.762 uIU/ML (0.55-4.78); TOTAL 25(OH) VITAMIN D 33.9 NG/ML (20.0-100.0)
[2024-02-02 13:07] LABS: BASO # 0.1 10^3/uL (0.0-0.2); BASO % 1.1 % (0.0-1.0); EOS # 0.3 10^3/uL (0.0-0.5); EOS % 3.5 % (0.0-3.0); HEMATOCRIT 47.5 % (36.0-47.0); HEMOGLOBIN 14.9 g/dl (12.0-15.5); LYMPH # 2.6 10^3/uL (1.5-5.0); LYMPH % 28.9 % (24.0-44.0); MEAN CORPUSCULAR HEMOGLOBIN 27.3 pg (27.0-33.0); MEAN CORPUSCULAR HGB CONC 31.4 g/dl (32.0-36.5); MEAN CORPUSCULAR VOLUME 87.2 fl (80.0-96.0); MONO # 0.6 10^3/uL (0.0-0.8); MONO % 6.8 % (2.0-8.0); NEUTROPHILS # 5.3 10^3/uL (1.5-8.5); NEUTROPHILS % 58.9 % (36.0-66.0); PLATELET COUNT, AUTOMATED 386 10^3/uL (150-450); RED BLOOD COUNT 5.45 10^6/uL (4.00-5.40)
[2024-02-02 13:30] LABS: HEMOGLOBIN A1c 5.4 % (4.0-6.0)
== END ==
LOC: M SFHCADAM 10:18
PROVIDERS: ATTEND Physician Assistant Medical
DX: Z00.00 Encounter for general adult medical examination without abnormal findings (principal); E66.01 Morbid (severe) obesity due to excess calories; E78.2 Mixed hyperlipidemia; E55.9 Vitamin D deficiency, unspecified; F41.1 Generalized anxiety disorder; R10.11 Right upper quadrant pain; R11.0 Nausea; Z79.899 Other long term (current) drug therapy

== ENCOUNTER → 2024-02-20 | Outpatient (CLI) | payer MEDICARE | LOC: M RAD 08:55 | PROVIDERS: ATTEND Physician Assistant Medical | DX: Z00.00 Encounter for general adult medical examination without abnormal findings (principal); R10.11 Right upper quadrant pain; R11.0 Nausea; K80.20 Calculus of gallbladder without cholecystitis without obstruction ==

== ENCOUNTER 2024-05-28 08:02 | Emergency (ER) | payer MEDICARE ==
[~2024-05-28] VITALS: Ht 165.1 cm; Wt 82.6 kg
[2024-05-28] MEDS ORDERED: ALBU8.5H (08:16)
[2024-05-28 09:10] LABS: BASO # 0.1 10^3/uL (0.0-0.2); BASO % 0.7 % (0.0-1.0); EOS # 0.2 10^3/uL (0.0-0.5); EOS % 1.5 % (0.0-3.0); HEMATOCRIT 49.7 % (36.0-47.0); HEMOGLOBIN 16.2 g/dl (12.0-15.5); LYMPH # 1.8 10^3/uL (1.5-5.0); LYMPH % 13.6 % (24.0-44.0); MEAN CORPUSCULAR HEMOGLOBIN 27.2 pg (27.0-33.0); MEAN CORPUSCULAR HGB CONC 32.6 g/dl (32.0-36.5); MEAN CORPUSCULAR VOLUME 83.5 fl (80.0-96.0); MONO # 0.8 10^3/uL (0.0-0.8); MONO % 6.2 % (2.0-8.0); NEUTROPHILS # 10.4 10^3/uL (1.5-8.5); NEUTROPHILS % 77.4 % (36.0-66.0); PLATELET COUNT, AUTOMATED 324 10^3/uL (150-450); RED BLOOD COUNT 5.95 10^6/uL (4.00-5.40); WHITE BLOOD COUNT 13.5 10^3/uL (4.0-10.0)
[2024-05-28 09:22] LABS: BILIRUBIN,DIRECT 0.2 MG/DL (<0.4); BILIRUBIN,TOTAL 0.6 MG/DL (0.3-1.2)
[2024-05-28] MEDS: MORPHINE 2 MG/ML 1ML VIAL IV ONE (09:48)
[2024-05-28] MEDS: ONDANSETRON 4MG 2ML VIAL IV ONE (09:49)
[2024-05-28] MEDS: PIPERACILLIN/TAZOBACTAM SOD 3.375 GM in D5W MINI-BAG PLUS 50 ML IV ONE (09:49)
[2024-05-28] MEDS: NS 1,000 ML IV ONE (09:49)
[2024-05-28] MEDS: KETOROLAC 30 MG/ML 1ML VIAL IV ONE (11:21)
[2024-05-28] MEDS ORDERED: ACET325C5 PO (12:51)
[2024-05-28] MEDS ORDERED: NAPR-837 PO (12:51)
[2024-05-28] MEDS ORDERED: AMOX875T2 PO (12:51)
[2024-05-28] MEDS ORDERED: ONDA-282 PO (12:51)
[2024-05-28 13:08] VITALS: BP 152/78; TEMP 98; O2SAT 97
== END 2024-05-28 13:07 | disposition home or self-care (01) ==
LOC: M ED 08:02
DX: K80.00 Calculus of gallbladder with acute cholecystitis without obstruction (principal); F17.200 Nicotine dependence, unspecified, uncomplicated; F10.10 Alcohol abuse, uncomplicated; M54.50 Low back pain, unspecified; Z79.52 Long term (current) use of systemic steroids; Z79.02 Long term (current) use of antithrombotics/antiplatelets; Z79.83 Long term (current) use of bisphosphonates; Z79.2 Long term (current) use of antibiotics
CPT/HCPCS: 76705; 80047; 80076; 83605; 83690; 85025; 96374; 96375; 99284; J1885; J2405; J2543

== ENCOUNTER → 2024-11-05 | Outpatient (CLI) | payer MEDICARE ==
[~2024-11-05] MED LIST changes: +ACET325C5 PO; +ALBU8.5H; +AMOX875T2 PO; +GABA-1172 PO; -GABA-282 PO; +NAPR-837 PO; +ONDA-282 PO
== END ==
LOC: M RAD 17:21
PROVIDERS: ATTEND Physician Assistant Medical
DX: Z12.2 Encounter for screening for malignant neoplasm of respiratory organs (principal); R91.8 Other nonspecific abnormal finding of lung field; F17.210 Nicotine dependence, cigarettes, uncomplicated

== ENCOUNTER → 2025-04-18 | Outpatient (CLI) | payer MEDICARE, OTHER, SELFPAY | LOC: M PLAIMG 10:11 | PROVIDERS: ATTEND Physician Assistant Medical | DX: R91.1 Solitary pulmonary nodule (principal); F17.210 Nicotine dependence, cigarettes, uncomplicated; I70.0 Atherosclerosis of aorta; D35.01 Benign neoplasm of right adrenal gland; D35.02 Benign neoplasm of left adrenal gland; K80.20 Calculus of gallbladder without cholecystitis without obstruction; J44.9 Chronic obstructive pulmonary disease, unspecified ==

== ENCOUNTER → 2025-05-02 | Outpatient (REF) | payer OTHER ==
[2025-05-02 18:45] LABS: BASO # 0.1 10^3/uL (0.0-0.2); BASO % 0.9 % (0.0-1.0); EOS # 0.1 10^3/uL (0.0-0.5); EOS % 1.2 % (0.0-3.0); LYMPH # 2.5 10^3/uL (1.5-5.0); LYMPH % 32.8 % (24.0-44.0); MONO # 0.5 10^3/uL (0.0-0.8); MONO % 6.7 % (2.0-8.0); NEUTROPHILS # 4.5 10^3/uL (1.5-8.5); NEUTROPHILS % 57.9 % (36.0-66.0); PLATELET COUNT, AUTOMATED 300 10^3/uL (150-450)
[2025-05-04 16:57] LABS: BERMUDA GRASS IGE < 0.10 kU/L (<0.10); BIRCH IGE < 0.10 kU/L (<0.10); COMMON RAGWEED SHORT IGE < 0.10 kU/L (<0.10); D001 IGE D PTERONYSSINUS < 0.10 kU/L (<0.10); D002-IGE D FARINAE < 0.10 kU/L (<0.10); E001-IGE CAT DANDER < 0.10 kU/L (<0.10); E005-IGE DOG DANDER < 0.10 kU/L (<0.10); ELM IGE < 0.10 kU/L (<0.10); I006 IGE COCKROACH < 0.10 kU/L (<0.10); IMMUNOGLOBULIN E FOR ALLERGENS 5 kU/L (<OR=114); M006 IGE ALTERNIA ALTERNATA < 0.10 kU/L (<0.10); M1-PENICILLIUM NOTATUM < 0.10 kU/L (<0.10); MOUSE URINE IGE < 0.10 kU/L (<0.10); MUGWORT IGE < 0.10 kU/L (<0.10); OAK IGE < 0.10 kU/L (<0.10); ROUGH PIGWEED IGE < 0.10 kU/L (<0.10); SHEEP SORREL IGE < 0.10 kU/L (<0.10); T001-IGE MAPLE BOX ELDER < 0.10 kU/L (<0.10); T006-IGE MOUNTAIN CEDAR < 0.10 kU/L (<0.10); T014 COTTONWOOD IGE < 0.10 kU/L (<0.10); TIMOTHY GRASS IGE < 0.10 kU/L (<0.10); WALNUT TREE IGE < 0.10 kU/L (<0.10); WHITE ASH IGE < 0.10 kU/L (<0.10); WHITE MULBERRY IGE < 0.10 kU/L (<0.10)
== END ==
LOC: M LAB REF 17:18
PROVIDERS: ATTEND Internal Medicine Pulmonary Disease
DX: J44.9 Chronic obstructive pulmonary disease, unspecified (principal)

== ENCOUNTER → 2025-08-23 | Outpatient (REF) | payer OTHER ==
[2025-08-23 13:42] LABS: ALT/SGPT 19.0 U/L (7.0-40); AST/SGOT 18.0 U/L (<34); CALCIUM LEVEL 9.6 MG/DL (8.5-10.1); CARBON DIOXIDE LEVEL 31.0 MMOL/L (20-31); CHLORIDE LEVEL 104.0 MMOL/L (98-107); CHOLESTEROL LEVEL 205.0 MG/DL (<200); CHOLESTEROL RISK RATIO 3.41 (<5); CREATININE FOR GFR 0.79 MG/DL (0.55-1.30); FREE T4 1.27 NG/DL (0.89-1.76); GLOMERULAR FILTRATION RATE 88.3 (>51); LDL CHOLESTEROL 126.9 MG/DL (<100); NON-HDL-C 144.9 MG/DL; POTASSIUM SERUM 5.3 MMOL/L (3.5-5.1); SODIUM LEVEL 140.0 MMOL/L (136-145); TOTAL 25(OH) VITAMIN D 34.5 NG/ML (20.0-100.0); TRIGLYCERIDES LEVEL 90.0 MG/DL (<150)
[2025-08-23 13:43] LABS: BASO # 0.1 10^3/uL (0.0-0.2); BASO % 0.8 % (0.0-1.0); EOS # 0.1 10^3/uL (0.0-0.5); EOS % 1.1 % (0.0-3.0); LYMPH # 2.3 10^3/uL (1.5-5.0); LYMPH % 24.2 % (24.0-44.0); MONO # 0.6 10^3/uL (0.0-0.8); MONO % 6.6 % (2.0-8.0); NEUTROPHILS # 6.4 10^3/uL (1.5-8.5); NEUTROPHILS % 66.5 % (36.0-66.0); PLATELET COUNT, AUTOMATED 332 10^3/uL (150-450)
[2025-08-23 14:03] LABS: ESTIMATED AVERAGE GLUCOSE 111.0 MG/DL (60-110)
== END ==
LOC: M SFHCADAM 08:05
PROVIDERS: ATTEND Physician Assistant Medical
DX: E66.01 Morbid (severe) obesity due to excess calories (principal); E78.2 Mixed hyperlipidemia; E55.9 Vitamin D deficiency, unspecified; I70.0 Atherosclerosis of aorta

== ENCOUNTER → 2025-09-06 | Outpatient (CLI) | payer OTHER ==
[~2025-09-06] MED LIST changes: +BUDE10.7 INH; +MONT10TA97 PO
== END ==
LOC: M ADAMS 14:35
PROVIDERS: ATTEND Physician Assistant Medical
DX: J44.1 Chronic obstructive pulmonary disease with (acute) exacerbation (principal)